=== PATIENT | male | born 1945 | race Caucasian/White ===

== ENCOUNTER 2016-10-15 11:22 | Inpatient (IN) | payer BC, OTHER ==
--- NOTE | ~2016-10-15 | CN ---
Consultation Report [facility] [address] [facility] [place]. [address] NAME: ANA LUISA REED : [birth year] STATUS : ADM IN PAT#: [id number] AGE: 71 ADM/REG DATE : 10/15/16 MR#: [id number] REPORT SERV DATE: 10/21/16 DICTATED BY: SHANTEL THOMPSON DATE: 10/21/16 REPORT STATUS : Draft TRANSCRIBED BY: MODL DATE: 10/21/16 NEUROLOGY CONSULTATION DATE OF CONSULTATION: 10/21/2016 REASON FOR CONSULTATION: Code stroke. SURGEON: Dr. Genaro Medina. MAIL LIST LIBRARIAN: Dr. Fred Rodriguez. HISTORY OF PRESENT ILLNESS: The patient is a 71-year-old male, who was admitted to the hospital on 10/15/2016. He had a chief complaint of chest pain. His chest pain had features of typical and atypical angina. He has had nuclear stress testing for his myocardial workup and the stress test came back normal, however, it was thought he may have had "balanced ischemia". Therefore he underwent cardiac catheterization along with intravascular ultrasound and this revealed that the patient's left main artery had severe stenosis in the midportion. The patient underwent coronary artery bypass grafting x3 on 10/17/2016. Today at approximately 11 a.m., a code stroke was called by Sigifredo Perales because the patient's level of consciousness had changed dramatically. The patient was sitting in the bed, repeating his name over and over again. This is a dramatic change from the patient's mentation yesterday. When talking with the patient's family member, the family member mentioned that the patient had a change in mentation around 7:30 p.m. last night. Stat ABGs were drawn which came back relatively normal except the patient was somewhat hypoxemic. The patient was taken down to CT scan and a hypodensity in the left frontoparietal region was visualized. Since the patient is status post coronary artery bypass grafting and the stroke time of onset was most likely yesterday, the patient was not a tPA candidate. The patient's NIH stroke scale score was calculated to be 9. PAST MEDICAL HISTORY: High-grade left main coronary artery disease; normal stress test with suspected "balanced ischemia"; chronic anemia; diabetes mellitus type 2; dyslipidemia; hypertension; left bundle-branch block; remote history of tobacco abuse; GERD; and Agent Schley exposure in [place]. PAST SURGICAL HISTORY: Status post coronary artery bypass grafting. SOCIAL HISTORY: Remote smoker without alcohol or illicit drug use. FAMILY HISTORY: Unobtainable from the patient at this point. CURRENT MEDICATION: List includes 1. Amiodarone 400 mg p.o. every 12 hours. Consultation Report [place] [id number] [place]. [address] NAME: ANA LUISA REED : [birth year] STATUS : ADM IN [facility]#: [id number] AGE: 71 ADM/REG DATE : 10/15/16 MR#: [id number] REPORT SERV DATE: 10/21/16 DICTATED BY: SHANTEL THOMPSON DATE: 10/21/16 REPORT STATUS : Draft TRANSCRIBED BY: WILL DATE: 10/21/16 2. Norvasc 5 mg p.o. at bedtime. 3. Vitamin C 1000 mg p.o. b.i.d. 4. Aspirin 81 mg daily. 5. Lipitor 40 mg at bedtime. 6. Coreg 12.5 mg b.i.d. 7. Pepcid 20 mg b.i.d. 8. NovoLog insulin sliding scale 8 units a.c. 9. Bactroban 1 g topical b.i.d. 10.Nitroglycerin 1 inch topical q.6 hours. 11.Senokot 2 tablets p.o. b.i.d. 12.Spiriva 1 inhalation daily. 13.Levemir 20 units subcu b.i.d. ALLERGIES: NONE. REVIEW OF SYSTEMS: Unobtainable from the patient at this time. PHYSICAL EXAMINATION: GENERAL: The patient is a 71-year-old male who stands 5 feet 7 inches tall and weighs 220 pounds. He is afebrile. VITAL SIGNS: Heart rate 61, respiratory rate 20, O2 saturations on 3 L nasal cannula 95%, and blood pressure 163/79. NEUROLOGIC: The patient is extremely hard of hearing. He is lethargic. He will arouse to verbal and painful stimuli but quickly drifts back to sleep. He appears to have some aphasia. He is dysarthric. He is oriented to person only, not to place, time, or situation. He will follow a few simple one-step commands. Pupils are 3 mm. PERRLA. EOMs are intact. It is difficult to determine visual field if there are visual field deficits; however, he will blink to visual threat. No noticeable facial droop. No tongue deviation. He can move all extremities x4. He is slightly weaker on the right than the left, grade 4/5 on the right upper extremity and 4/5 in the right lower extremity. DTRs are intact 2+ throughout, downgoing toes. It is difficult to assess for sensory deficits since the patient is drowsy. NECK: No carotid bruits, JVD, or thyromegaly. CHEST: Lung sounds relatively clear. CARDIAC: Regular rate and rhythm. LAB DATA: CBC normal. BMP: BUN is 52, creatinine 1.16. ABGs, pH 7.4, CO2 of 37, PO2 of 75, bicarb 22.1, and PaO2 is 94.2%. CT of the brain, acute to subacute hypodensity in the left frontoparietal region. NIH stroke scale is 9. ASSESSMENT/PLAN: Acute to subacute stroke. At this point, the patient's aspirin will be increased to 325 mg daily. He will continue Crestor 40 mg p.o. at bedtime. Stat carotid duplex study. The patient will undergo an MRI of the brain without gadolinium and an MRA of the head and neck with gadolinium. He will also have an echocardiogram with bubble study. PT/OT and Speech Therapy consultation. He will be n.p.o. until he is seen and cleared by Consultation Report [address] [address] NAME: ANA LUISA REED : [birth year] STATUS : ADM IN [facility]#: [id number] AGE: 71 ADM/REG DATE : 10/15/16 MR#: [id number] REPORT SERV DATE: 10/21/16 DICTATED BY: SHANTEL THOMPSON DATE: 10/21/16 REPORT STATUS : Draft TRANSCRIBED BY: WILL DATE: 10/21/16 Speech Therapy. He will be transferred to ICU since he is lethargic and has decreased LOC; however, he is not a tPA candidate. Further lab work will be drawn. Thank you again for including us in consultation. We will continue to follow with you. YESSY/WILL Shantel Thompson, [facility]- / [id number] CC: MD Duane Bullock M.D. Stephen Martin, M.D.
--- NOTE | ~2016-10-15 | CN ---
Consultation Report [place] [id number] [facility] [place]. [address] NAME: ANA LUISA REED : [birth year] STATUS : ADM IN PAT#: [id number] AGE: 71 ADM/REG DATE : 10/15/16 MR#: [id number] REPORT SERV DATE: 10/17/16 DICTATED BY: GENARO MEDINA DATE: 10/17/16 REPORT STATUS : Draft TRANSCRIBED BY: WILL DATE: 10/17/16 CONSULTATION DATE OF CONSULTATION: 10/15/2016 PERTINENT HISTORY: The patient is a 71-year-old gentleman, admitted to the hospital with acute chest pain syndrome. By Dr. Nithin Rodriguez, the cardiac catheterization was performed, which demonstrated left main coronary stenosis. The patient has been mainly referred for cardiac surgical evaluation. PAST MEDICAL HISTORY: Significant for previous history of known anemia of unknown etiology and a history of hypertension. He has no history of open cardiac or thoracic surgery. SOCIAL HISTORY: Remotely positive for tobacco use. FAMILY HISTORY: Positive for coronary artery disease. REVIEW OF SYSTEMS: Significant for the recent onset of chest pain. No neurologic symptoms. PHYSICAL EXAMINATION: VITAL SIGNS: Show the patient to be afebrile. Blood pressure 140/70, heart rate was 60. GENERAL: He is in no acute distress. Alert and oriented x3. NEUROLOGIC: Intact. NECK: No bruits noted in his neck. No adenopathy in the neck. CHEST: Good breath sounds bilaterally without wheezes, rales, or rhonchi. CARDIAC: Regular rate and rhythm. No murmur noted. ABDOMEN: Soft and nontender without masses. EXTREMITIES: Warm and dry. : Normal. SKIN: Showed no rash. LABORATORY DATA: The cardiac catheterization demonstrated very tight left main coronary stenosis with a trifurcating left main. The obtuse marginal artery looked small. The right coronary artery had minimal disease. The left ventricular function was adequate. IMPRESSION: At this time, left main coronary stenosis with acute coronary syndrome. PLAN: To proceed with coronary revascularization. ANSON/WILL Consultation Report [place] [id number] [facility] [place]. [address] NAME: ANA LUISA REED : [birth year] STATUS : ADM IN PAT#: [id number] AGE: 71 ADM/REG DATE : 10/15/16 MR#: [id number] REPORT SERV DATE: 10/17/16 DICTATED BY: GENARO MEDINA DATE: 10/17/16 REPORT STATUS : Draft TRANSCRIBED BY: WILL DATE: 10/17/16 Genaro Medina M.D. / [id number] CC: Fred Rodriguez MD
--- NOTE | ~2016-10-15 | CN ---
Consultation Report [facility] [address] [place]. [address] NAME: ANA LUISA REED : 47 STATUS : ADM IN PAT#: [id number] AGE: 71 ADM/REG DATE : 10/15/16 MR#: [id number] REPORT SERV DATE: 10/21/16 DICTATED BY: PRATIMA GUIDRY DATE: 10/21/16 REPORT STATUS : Draft TRANSCRIBED BY: MODLara DATE: 10/21/16 CONSULT DATE OF CONSULTATION: HISTORY OF PRESENT ILLNESS: This is a 71-year-old patient that I was asked to follow in the CVICU for mental status and airway management. The patient is status post urgent coronary artery bypass grafting x3 done by Dr. Genaro Medina, on 10/17/2016. The patient was seen by Dr. Bueno on 10/16/2016, because of some dyspnea on exertion. The patient was started on Spiriva and albuterol and has a very remote history of smoking. He stopped smoking in 1992, and has about a 20 to 30 pack year history of smoking. Also has a history of Agent Morrison exposure in [place]. The patient did well postoperatively and was transferred to the floor just a day or two ago and then had a sudden change in mental status on 10/21/2016, a code stroke was called, and a CT scan of the head was done, and showed an area low density, in the left posterior frontal location that was thought to be a subacute stroke. He then had an MRI of the brain done and showed acute focal left frontal infarction, but no bleeding. The patient currently is undergoing further evaluation as per stroke protocol. Concerns about him being maintained on the floor were that he became somnolent at times and might have difficulty managing his airway. ALLERGIES: THE PATIENT HAS NO KNOWN ALLERGIES. HOME MEDICATIONS: Norvasc, aspirin, carvedilol, hydrochlorothiazide, insulin, Cozaar, metformin, Prilosec, and Crestor. PAST MEDICAL HISTORY: 1. Significant for coronary artery disease and recent triple vessel bypass surgery. 2. Type 2 diabetes mellitus. 3. Dyslipidemia. 4. Hypertension. 5. History of left bundle-branch block. SOCIAL HISTORY: Significant for cigarette smoking. Quit in 1992 to 1993. No history of significant alcohol or drug use. FAMILY HISTORY: Significant for coronary artery disease. REVIEW OF SYSTEMS: At this time, the patient is very hard of hearing. His biggest complaint is being short of breath. He denies any chest pain, other than the incisional discomfort and has denied any abdominal pain, nausea, vomiting, dizziness, blurred vision, and the remainder of a 10-point review of systems is unremarkable. PHYSICAL EXAMINATION: Consultation Report [place] [id number] [place]. [address] NAME: ANA LUISA REED : [birth year] STATUS : ADM IN PAT#: [id number] AGE: 71 ADM/REG DATE : 10/15/16 MR#: [id number] REPORT SERV DATE: 10/21/16 DICTATED BY: PRATIMA GUIDRY DATE: 10/21/16 REPORT STATUS : Draft TRANSCRIBED BY: WILL DATE: 10/21/16 VITAL SIGNS: The patient is responsive, and does respond appropriately. His blood pressure is 146/86, respiratory rate initially was in the high 20s and is now down to 19, O2 saturation now on 2 to 3 L is 96%. Heart rate is 63 and in normal sinus rhythm. SKIN: The patient's skin is warm and dry. HEENT: Head is atraumatic and normocephalic. Pupils are sluggish, but reactive. Sclerae anicteric. Conjunctivae are pink. Nasal mucosa is within normal limits. Oral mucosa is moist. Tongue is midline. NECK: Supple without JVD, lymphadenopathy, or thyromegaly. RESPIRATORY: Lungs are notable for bilateral wheezing. An incision with dressing without significant drainage. CARDIAC: Reveals a regular rate and rhythm with no significant murmurs. ABDOMEN: Obese, nondistended, and soft. Bowel sounds are present. RECTAL/GENITAL: Deferred. EXTREMITIES: Without cyanosis, clubbing, or edema. Pulses are palpable and symmetrical. NEUROLOGIC: Cranial nerves 2 through 12 are grossly intact. Motor and sensory are intact. There are no focal findings. LABORATORY AND DIAGNOSTIC DATA: chest x-ray shows pulmonary vascular congestion. ABG done earlier today showed a pH of 7.4, pCO2 of 37, PO2 of 75, bicarbonate of 22, O2 saturation of 94% on 32% FiO2. Electrolytes this morning, sodium 137, potassium 4.3, chloride 102, bicarb 25, BUN 52, creatinine 1.16, glucose 152, calcium 8.2. White cell count 11, hemoglobin 9.7, hematocrit 31, platelet count 158,000. AM cortisol 33.9, and ammonia level 33. LFTs are within normal limits except for slight elevation of ALT this 74 and AST 58, TSH is 1.07, free T4 is 1.06. ASSESSMENT AND PLAN: This is a 71-year-old patient, status post triple-vessel bypass surgery, history of smoking, probable chronic obstructive pulmonary disease, hyperlipidemia, who now presents with encephalopathy on the floor. Further workup showed him to have a subacute stroke and the acute focal left frontal infarction was noted, but no bleed. So, the patient will be observed in the CVICU for airway management and frequent neurologic checks. Since he has subacute stroke. Not a candidate for tPA. With regard to his pulmonary status, he will need diuretics, as well as Brovana, Pulmicort, and DuoNeb for his wheezing. We will need formal evaluation as an outpatient for pulmonary function testing if not already done. For his diabetes, he will be on a sliding insulin scale. We will follow patient with you. Thank you for your consultation. /WILL Pratima Guidry M.D. Consultation Report [address] [address] NAME: ANA LUISA REED : [birth year] STATUS : ADM IN [facility]#: [id number] AGE: 71 ADM/REG DATE : 10/15/16 MR#: [id number] REPORT SERV DATE: 10/21/16 DICTATED BY: PRATIMA GUIDRY DATE: 10/21/16 REPORT STATUS : Draft TRANSCRIBED BY: WILL DATE: 10/21/16 / [id number] CC: Fred Rodriguez MD
--- NOTE | ~2016-10-15 | CN ---
Consultation Report [facility] [address] [place]. [address] NAME: ANA LUISA REED : 47 STATUS : ADM IN PAT#: [id number] AGE: 71 ADM/REG DATE : 10/15/16 MR#: [id number] REPORT SERV DATE: 10/23/16 DICTATED BY: IRMA MCNEILL DATE: 10/23/16 REPORT STATUS : Draft TRANSCRIBED BY: MODL DATE: 10/23/16 CONSULTATION DATE OF CONSULTATION: 10/22/2016 REASON FOR CONSULTATION: Consulted for anemia work up. The patient has a history of chronic anemia. Neurology wants to actually place patient postoperatively from a subacute stroke on Eliquis after a workup eval is done and if okay with senior etl developer and Cardiovascular Surgery. IDENTIFYING DATA: 1. Primary care physician, Duane Rockwell M.D. 2. Neurology, JENNY Honeycutt. 3. Gas [employer]ch Brazier, Fred Rodriguez MD. 4. Cardiovascular Surgery, Genaro Medina M.D. 5. Pulmonology, Remy Bueno M.D. HISTORY OF PRESENT ILLNESS: This is a 71-year-old male, who was admitted to the hospital on 10/15/2016 with a chief complaint of chest pain. He had a stress testing for his myocardial work up and the stress test came back normal; however, it was thought that he had a "balanced ischemia." He underwent cardiac catheterization, intravascular ultrasound, and it revealed that the patient had a left main artery that had severe stenosis. He is actually status post recent CABG x3 after noting high-grade left main coronary artery disease on 10/17/2016. On 10/21/2016, at around 11 in the morning, a code stroke was called because the patient's level of consciousness had dramatically changed. He was sitting in the bed, repeating his name over and over. The mentation was different. The patient was taken down for a stat CT scan that displayed a hypodensity in the left frontoparietal region. He is status post coronary artery bypass grafting surgery for which he is status post subacute CVA of the left frontal lobe with no bleed noted. The patient was not noted a tPA candidate, and his NIH stroke scale was calculated at that time to be 9. The hospitalist group is consulted by Neurology, status post CVA for an anemia work up. The patient is noted to have chronic anemia. Neurology wants to be able to place the patient postoperatively on Eliquis after the workup is evaluated and pending okay with Cardiology and the Cardiovascular Surgery group. The patient's history was obtained through [employer] and [employer] and design studio consultant notes and some medical records including in the chart. The patient is confused and unable to give a history, and actually is very sleepy at present time. When he awakens, he does have repetitive speech. PAST MEDICAL HISTORY: 1. Angina. 2. Hypertension. 3. GERD. Consultation Report [place] [id number] [facility] [place]. [address] NAME: ANA LUISA REED : 47 STATUS : ADM IN [facility]#: [id number] AGE: 71 ADM/REG DATE : 10/15/16 MR#: [id number] REPORT SERV DATE: 10/23/16 DICTATED BY: IRMA MCNEILL DATE: 10/23/16 REPORT STATUS : Draft TRANSCRIBED BY: WILL DATE: 10/23/16 4. Psoriasis. 5. Diabetes type 2. 6. Chronic anemia. 7. Hyperlipidemia. 8. Left bundle branch block. 9. COPD. 10.He is hard of hearing. 11.Status post new subacute CVA with an acute left frontal infarct. No noted bleed post CABG surgery on 10/17/2016. HOME MEDICATIONS: 1. Norvasc 10 mg p.o. every day at bedtime. 2. Aspirin 325 mg p.o. daily. 3. Coreg 3.125 mg tablet p.o. twice a day. 4. Hydrochlorothiazide 25 mg p.o. daily. 5. Lantus 60 units subcutaneous twice a day. 6. Cozaar 100 mg p.o. daily. 7. Glucophage 1000 mg p.o. with breakfast and supper. 8. Prilosec 20 mg p.o. daily. 9. Crestor 20 mg p.o. every day at bedtime. ALLERGIES: NO KNOWN ALLERGIES. SOCIAL HISTORY: The patient lives alone in a single-level home. Remote history of smoking, quit in 1992 to 1993. He has a 20 to 30 pack year history. No illicit drugs or alcohol use. Had exposure to Agent Turner while in [place]. FAMILY HISTORY: Only noted as positive for coronary artery disease. The patient's son is not available to answer family history, and patient is unable at present time. SURGICAL HISTORY: 1. Inner ear surgery x3. 2. CABG x3 on 10/17/2016. REVIEW OF SYSTEMS: Negative other than what is included in HPI. The patient has no nausea and vomiting. No shortness of breath. No agitation. No abdominal pain. No chest pain. No fever. Shows confusion and status post aphasic after CVA. PHYSICAL EXAMINATION: VITAL SIGNS: From today: Blood pressure 118/58, respiratory rate 18, heart rate 60, temperature 97.9, and O2 saturation 99% on 2 L nasal cannula. GENERAL: This is a 71-year-old male, resting in bed, in no acute distress. He is sleepy. Upon awakening, he is confused. He is aphasic. At times, he will have repetitive speech, but he can obey commands. He is cooperative. Consultation Report [address] [place]. [address] NAME: ANA LUISA REED : 47 STATUS : ADM IN [facility]#: [id number] AGE: 71 ADM/REG DATE : 10/15/16 MR#: [id number] REPORT SERV DATE: 10/23/16 DICTATED BY: IRMA MCNEILL DATE: 10/23/16 REPORT STATUS : Draft TRANSCRIBED BY: WILL DATE: 10/23/16 NECK: His neck is supple. His trachea is midline. No JVD noted. No obvious thyromegaly or lymphadenopathy. EENT: His sclerae are nonicteric. Pupils are equal and reactive to light. Nares are patent. Mucous membranes are moist. CHEST: No pain with palpation. He does have a mid sternal dressing that is clean, dry, and intact. LUNGS: Diminished in bases. No increased work of breathing noted. Normal respiratory effort. CARDIOVASCULAR: S1, S2 with no obvious murmurs, rubs, or gallops. On telemetry, he displays a sinus bradycardia with a rate of 59. ABDOMEN: Soft, nontender. Active bowel sounds. No palpable organomegaly. EXTREMITIES: Normal distal pulses. No calf tenderness. No edema. He has SCDs in place. SKIN: Warm, dry. No unusual rashes or lesions. Normal color turgor. PSYCH: The patient is very sleepy, cooperative but flat affect. SURGICAL WOUND SITE: Dressing is clean, dry, and intact. LABORATORY DATA: Sodium 141, potassium 3.9, chloride 103, CO2 of 22.1. BUN 51, creatinine 1.04, GFR 84, glucose 143, calcium 8.2, magnesium 2.8, and phosphorus 2.3. White blood cell 8.5, hemoglobin 9.1, hematocrit 29.0, platelets 138. INR 1.2. On 10/22/2016, a chest x-ray noted some bilateral effusions with bibasilar atelectasis and some pulmonary vascular congestion. It is noted the patient is on Lasix daily. On 10/20/2016, an EKG showed a sinus rhythm with a first-degree heart block. Nonspecific intraventricular block and an abnormal EKG. ASSESSMENT AND PLAN: 1. The patient is noted to have chronic anemia. Neurology requested the hospitalist do a work up for this anemia for the patient to be able to be placed on Eliquis if okay with cardiovascular surgeon and Cardiology. We will add labs to his a.m. labs, a BMP, magnesium, and CBC. We will add a serum iron, TIBC, serum ferritin, a peripheral smear, and stool for occult blood. 2. Hypertension. Aware. The patient has a history of coronary artery disease now with a left bundle branch block. He is status post a cerebrovascular accident after having coronary artery bypass graft x3. Management as per Cardiology for hypertension and coronary artery disease, and the patient is followed by Neurology, status post stroke. The patient will be continued on Coreg, Ecotrin, Norvasc, his p.r.n. Catapres, and nitroglycerin ointment. 3. Chronic obstructive pulmonary disease. Aware. Management per Pulmonology, where they will continue Brovana, Pulmicort, Spiriva, and O2 to titrate to keep the patient's saturations 92% or greater. 4. Gastroesophageal reflux disease. Aware. The patient's Pepcid will be continued. 5. Hyperlipidemia. Aware. Lipitor daily will be continued. 6. Diabetes type 2. Aware. The patient is status post coronary artery bypass graft x3. His Levemir will be continued and also he was placed on a sliding scale insulin, level 3 with coverage before meals and at bedtime. Consultation Report [place] [id number] [place]. [address] NAME: ANA LUISA REED : 47 STATUS : ADM IN PAT#: [id number] AGE: 71 ADM/REG DATE : 10/15/16 MR#: [id number] REPORT SERV DATE: 10/23/16 DICTATED BY: IRMA MCNEILL DATE: 10/23/16 REPORT STATUS : Draft TRANSCRIBED BY: WILL DATE: 10/23/16 The hospitalist group would love to thank you for this consultation. Please let us know if we can be of further assistance. The a.m. team will evaluate a.m. labs and make further decision for anemia work up. MARTINA Irma Mcneill NP / [id number] CC: MD Duane Bullock M.D.
--- NOTE | ~2016-10-15 | DS ---
Discharge Summary [facility] [address] [facility] [place] [address] NAME: ANA LUISA REED : 47 STATUS : DIS IN PAT#: [id number] AGE: 71 ADM/REG DATE : 10/15/16 MR#: [id number] REPORT SERV DATE: 11/08/16 DICTATED BY: GENARO MASTERS DATE: 11/07/16 REPORT STATUS : Draft TRANSCRIBED BY: WILL DATE: 11/07/16 Data Collection from hospitalization DISCHARGE DIAGNOSES: 1. Left main coronary artery stenosis with unstable angina, status post coronary artery bypass grafting. 2. Hypertension. 3. Type 2 diabetes mellitus. 4. Chronic anemia. 5. Dyslipidemia. 6. History of left bundle-branch block. 7. Former smoker. 8. Gastroesophageal reflux disease. 9. Agent [place] exposure in [place]. CONSULTANTS: 1. Fred Rodriguez MD. 2. Remy Bueno M.D. 3. Shantel Johnson [facility]. 4. Irma Ureña NP. 5. Fredrick Bianchi M.D. 6. Makenzie Ly. PROCEDURES: 1. Cardiac catheterization, 10/15/2016. 2. Urgent coronary artery bypass grafting x3 with endoscopic vein harvest utilizing the left internal mammary artery to the left anterior descending artery, reverse saphenous vein graft from the aorta to the diagonal #1 from the aorta to the ramus intermedius, also transesophageal echocardiography, 10/17/2016. 3. Carotid blood flow study, 10/21/2016. 4. CT scan of the brain without contrast, 10/21/2016. 5. MRI of the brain without contrast, 10/21/2016. PATHOLOGY: Review of the peripheral smear demonstrates a moderate microcytic and hypochromic anemia with Rouleaux formation. There was a normal white count with cells of normal mature morphology and differential and without circulating plasma cells. Platelets are minimally decreased and are of normal morphology. This likely represents iron deficiency anemia. Rouleaux formation is present which although nonspecific may be seen with protein abnormalities such as plasma cell neoplasm although less likely. DISCHARGE MEDICATIONS: Norvasc 5 mg at bedtime, Eliquis 5 mg twice a day, aspirin 325 mg daily, Lipitor 80 mg at bedtime, Coreg 12.5 mg twice a day, Colace 100 mg at bedtime, Lantus 60 units subcutaneously twice a day, Prinivil 5 mg daily - hold for systolic blood pressure less than 115, Protonix 40 mg before breakfast and supper, Glucophage 1000 mg with breakfast and supper. CONDITION AT DISCHARGE: Stable. Discharge Summary [place] [place] [address] [place]. [address] NAME: ANA LUISA REED : 47 STATUS : DIS IN PAT#: [id number] AGE: 71 ADM/REG DATE : 10/15/16 MR#: [id number] REPORT SERV DATE: 11/08/16 DICTATED BY: GENARO MASTERS DATE: 11/07/16 REPORT STATUS : Draft TRANSCRIBED BY: MODLara DATE: 11/07/16 DISPOSITION: The patient was discharged to [facility] on an 1800 calorie diabetic diet with activities as instructed. HOSPITAL COURSE: This is a 71-year-old man who had had no previous cardiac history. He had been referred to the Cardiology Clinic for evaluation on 11/03/2016. He had developed chest pain with both typical and atypical features for angina. He had been referred for stress testing as part of a noninvasive workup for myocardial ischemia. The stress test was somewhat ambiguous. He had 10/10 chest pain with exertion as well as ECG changes that were suggestive of myocardial ischemia. However, his myocardial perfusion imaging study was normal showing no evidence of myocardial perfusion or infarction with an ejection fraction of approximately 55%. It was felt that he would need to undergo coronary angiography. He was admitted to the hospital at this time for further evaluation and treatment. Upon admission, he was seen by Dr. Fred Rodriguez. The patient was taken to the cardiac cork slabs sawyer where he underwent cardiac catheterization by Dr. Rodriguez. The patient was in fact found to have significant left main coronary heart disease. This was not entirely clear based on the angiography alone, and therefore, intravascular ultrasound imaging of the patient's left main coronary artery was performed. This demonstrated severe stenosis of the mid portion of the left main coronary artery with minimal luminal area of 3.5 sq mm or less. Due to his relatively unstable symptoms, it was felt that he may need to undergo coronary artery bypass grafting. The patient does have a history of chronic anemia. He denies any history of melena or recent GI bleeding. The patient's symptoms were somewhat concerning for unstable angina. The following day, the patient was in a sinus rhythm in the 80s with left bundle-branch block. Plans were being made to proceed with coronary artery bypass grafting. Metformin had been held. Sliding scale insulin level 1 was being provided. He was seen by Makenzie Ly regarding diabetes mellitus. The patient says that he has had diabetes mellitus for five or six years. He checks his blood glucose levels in the morning and evening. He denied any chest pain, shortness of breath, or any symptoms at this time. Hemoglobin A1c was going to be checked. In 09/2014, it was 8.4. Level 2 sliding scale insulin was continued. Lantus was going to be given twice a day. He was seen by Dr. Remy Bueno for his opinion regarding evaluation and management of the patient's COPD. The patient states that he has chronic shortness of breath that is well localized to the chest and is nonradiating with no significant alleviating or exacerbating factors. He does experience dyspnea on exertion at approximately 100 feet and has difficulty walking up a flight of stairs. He has been prescribed inhalers by the [place] but had never taken them because he does not like to be on medications that could potentially be addictive. The patient had noticed shortness of breath at baseline. He is not on oxygen. He was educated on the importance of medication compliance. There was no evidence of active acute exacerbation, COPD, or any active pulmonary disease requiring delay of surgery. At this point, to better risk stratify him, Dr. Bueno recommended spirometry and starting Spiriva and albuterol as needed. On 10/17/2016, the patient was taken to the operating room where he underwent the above-mentioned procedure. He tolerated this well. There were no complications. On postop day #1, he was up sitting in a chair. He was not eating much. He had diminished urine output. We encouraged him to mobilize. A dose of Lasix was given. Mediastinal drain was going to be discontinued. Blood pressure medications were adjusted. On 10/19/2016, he Discharge Summary [address] [place]. [address] NAME: ANA LUISA REED : 47 STATUS : DIS IN PAT#: [id number] AGE: 71 ADM/REG DATE : 10/15/16 MR#: [id number] REPORT SERV DATE: 11/08/16 DICTATED BY: GENARO MASTERS DATE: 11/07/16 REPORT STATUS : Draft TRANSCRIBED BY: MODLara DATE: 11/07/16 had coarse breath sounds bilaterally. His pleural chest tube was removed. He was in a sinus rhythm. We were watching his creatinine. Creatinine level was 1.27. He developed atrial fibrillation, and IV amiodarone was added. On 10/20/2016, he was currently in a normal sinus rhythm. He had no new complaints. He did have some shortness of breath that morning. He was in a normal sinus rhythm at 60 beats per minute. Chest x-ray showed mild to moderate pulmonary edema. The following day, he had some confusion. O2 saturation was 99% on 3 L. His wound looked okay. He had an altered mental status and was disoriented. He was seen in Neurology home full by Shantel Johnson. A Code Stroke was called because the patient's level of consciousness changed dramatically. He was sitting in bed repeating his name over and over again. This was a dramatic change from his mentation the day previously. His family member mention that he had a change in his mentation around 07:30 p.m. the previous evening. ABGs were drawn which came back relatively normal except that the patient was somewhat hypoxemic. A CT scan of the brain without contrast showed a hypodensity in the left frontoparietal region. The patient was not a candidate for tPA at this time. He was felt to have had an acute/subacute stroke. Aspirin was increased. Crestor was continued. A carotid duplex study was requested as well as an MRI of the brain without gadolinium and an MRA of the head and neck with gadolinium. Echocardiogram with bubble study was requested. He would be held n.p.o. at this time. He was transferred to the ICU. A carotid blood flow study was performed. He had carotid category 2, range of 50-60% luminal stenosis atheroma in the internal carotid above the bifurcation. This had smooth appearance and the core appeared soft suggesting [id number] vulnerability. Left vertebral antegrade subclavian velocity 187 cm. Right carotid normal. Right vertebral antegrade subclavian velocity 86 cm. MRI of the brain without contrast was performed that showed acute focal left frontal infarction-no bleed. Echocardiogram with bubble study was performed. He remained in a normal sinus rhythm at this time. He was transferred back to the ICU. No anticoagulation was given secondary to acute stroke and anemia of uncertain etiology. Aspirin, amiodarone, Coreg, and atorvastatin were continued. Physical and occupational therapy were held. On 10/22/2016, his level of consciousness had improved, but he remained disoriented to place and time. Echocardiogram showed normal left ventricular ejection fraction of 55% and normal valve. He was in a normal sinus rhythm. He did have a bowel movement. His wounds looked okay. He had slight aphasia, but no other new neurologic deficits. He was seen by Irma Ureña for an anemia workup. The patient has a history of chronic anemia. Neurology wanted to actually place the patient postoperatively from a subacute stroke on Eliquis after a workup evaluation was done, and this was okay with the solid waste landfill technician and Cardiovascular Surgery. BMP, magnesium, and CBC were going to be checked as well as a serum iron, TIBC, serum ferritin, peripheral smear, and stool for occult blood. The patient was continued on Coreg, Ecotrin, Norvasc, Catapres, and nitroglycerin ointment. Pepcid was continued. Lipitor was continued. We were going to continue the Levemir, and he was placed on level 3 sliding scale insulin coverage before meals and at bedtime. Continue Brovana, Pulmicort, Spiriva, and O2 to titrate to keep the patient's saturation 92% or greater. On 10/23/2016, Hemovac looked okay. His neurologic status was improving. He had a mild cough and aphasia. He had no shortness of breath or chest pain. He remained in a normal sinus rhythm. Lisinopril was added. Speech/Language Pathology performed a bedside swallow study. There were no overt signs or symptoms of aspiration. Aspiration precautions remained in place. The patient said he felt extremely hot. The patient was seen in consultation by Dr. Fredrick Bianchi regarding heme-positive anemia. He has had green stool. His hematocrit was stable at 30. He said that he had an EGD and colonoscopy performed [address] Discharge [address] [address] NAME: ANA LUISA REED : 47 STATUS : DIS IN PAT#: [id number] AGE: 71 ADM/REG DATE : 10/15/16 MR#: [id number] REPORT SERV DATE: 11/08/16 DICTATED BY: GENARO MASTERS DATE: 11/07/16 REPORT STATUS : Draft TRANSCRIBED BY: WILL DATE: 11/07/16 years previously which were basically negative except for two small polyps that were removed. This was performed by Dr. Salgado. He had no abdominal pain. The stool appeared normal. He does take Prilosec at home daily. He was felt to be at high risk for endoscopic procedures at that point due to his recent CVA. In addition, the patient did not want endoscopy done at this point. Protonix was going to be continued twice a day. TSH was normal. It was felt reasonable to start Eliquis and observe for active bleeding. It was suggested that he follow up as an outpatient with his primary green coffee blender, Dr. Kings Salgado for EGD and colonoscopy at some point. On 10/24/2016, his stool was dark that morning. Proton pump inhibitor continued. He underwent diabetes education. He had no change in his neurologic status. He had no surgical issues. Eliquis had been started. The next day, he said he was feeling better. He had no shortness of breath. We encouraged him to use pulmonary toilet. Over the next couple of days, he had no chest pain. He did have some basilar rales and decreased breath sounds. Discharge planning was performed. IV Lasix was given. His shortness of breath decreased. His speech was more clear. He was alert and oriented. He had no surgical issues. Chest x-ray showed improving congestive failure changes and small right pleural effusion. He remained in a normal sinus rhythm. He still had slight expressive aphasia but it was much improved. On 10/28/2016, he continued to do well. He had no new complaints. Dysarthria continued to improve. He did have a bowel movement. He was felt to have recovered well from his small stroke. Aspirin and atorvastatin were continued. Eliquis was continued as well. He did have a brief episode of atrial fibrillation. H and H remained stable. Discharge instructions were given. Due to his improved and stable condition, he was discharged to [facility] with the above-stated instructions. Information collected by: Paige King I submit the above information as my discharge summary. BRIANNA/WILL Genaro Masters M.D. / [id number] CC: MD Duane Bullock M.D. [facility] Bianchi M.D.
--- NOTE | ~2016-10-15 | CN ---
Consultation Report [facility] [address] [place]. [address] NAME: ANA LUISA REED : 47 STATUS : ADM IN PAT#: [id number] AGE: 71 ADM/REG DATE : 10/15/16 MR#: [id number] REPORT SERV DATE: 10/24/16 DICTATED BY: FREDRICK BIANCHI DATE: 10/24/16 REPORT STATUS : Draft TRANSCRIBED BY: MODL DATE: 10/24/16 GI CONSULTATION. DATE OF CONSULTATION: 10/23/2016 REASON FOR CONSULTATION: Regarding heme-positive anemia. HISTORY OF PRESENT ILLNESS: This is a 71-year-old man, patient of Dr. Kings Salgado, who was admitted on 10/15/2016. His hospital course includes coronary artery bypass grafting and acute left frontal CVA. The CVA occurred a few days after the CABG. The patient had swallow study done recently, which did not show aspiration. He has paroxysmal atrial fibrillation, and Eliquis has been suggested, however, he is heme-positive. No gross bleeding. No melena or hematochezia. No abdominal pain. Stools normal. No GERD or dysphagia. He does take Prilosec daily at home. He was transfused around the time of his surgery, but no transfusions since. He has had green stool. His hematocrit has been stable at 30. He states he had EGD colonoscopy done two years ago, which were basically negative except for two small polyps removed. This was done by Dr. Salgado per patient. MEDICAL HISTORY: Remarkable for CAD, status post CABG as above. Acute left frontal CVA as above. Paroxysmal atrial fibrillation, diabetes, hypertension, GERD, psoriasis, chronic anemia, hyperlipidemia, left bundle-branch block, COPD. ALLERGIES: NONE. MEDICATIONS: In the hospital include vitamins C, Spiriva, Senokot, Pulmicort, Proventil, Protonix 40 mg twice daily, Prinivil or zinc, insulin, Lipitor, IV thiamine, iron, aspirin, Coreg, Colace, Brovana, Bactroban. FAMILY HISTORY: Negative for GI malignancy. SOCIAL HISTORY: Does not use alcohol or tobacco significantly by report. REVIEW OF SYSTEMS: A complete review of systems was obtained and negative except that noted in the history of present illness. PHYSICAL EXAMINATION: VITAL SIGNS: He is currently afebrile. Temperature 97.0, pulse 59, respirations 16, blood pressure 118/58. HEENT: Sclerae anicteric. Pharynx is pink without exudate. NECK: Supple without lymphadenopathy. LUNGS: Clear to auscultation bilaterally. HEART: Regular rate and rhythm. S1, S2 heard without rubs or gallops. ABDOMEN: Normal bowel sounds. Belly is soft, nontender, nondistended without Consultation Report [address] [place]. [address] NAME: ANA LUISA REED : 47 STATUS : ADM IN PAT#: [id number] AGE: 71 ADM/REG DATE : 10/15/16 MR#: [id number] REPORT SERV DATE: 10/24/16 DICTATED BY: FREDRICK BIANCHI DATE: 10/24/16 REPORT STATUS : Draft TRANSCRIBED BY: WILL DATE: 10/24/16 hepatosplenomegaly. EXTREMITIES: No pedal edema or rash. NEUROLOGIC: Alert and oriented. There is no obvious focal deficit. RECTAL: Exam with nurse medical laboratory manager shows green stool. There are internal hemorrhoids, but no masses palpated. No blood. LABORATORY DATA: White blood cell count 8.4, hematocrit 30.2 and stable, MCV 72.6, platelets 140, BUN is 33, creatinine 0.89, bilirubin 0.5, alkaline phosphatase 183, ALT 74, AST 58, iron 20, TIBC 328, ferritin 119, this is after blood transfusion. TSH is normal. IMPRESSION: 1. Heme-positive iron deficiency anemia without gross bleeding. On acid suppression at home prior to admission. 2. Anemia, chronic. 3. Coronary artery disease, status post recent CABG. 4. Paroxysmal atrial fibrillation. 5. Acute left frontal cerebrovascular accident with negative swallow study. RECOMMENDATIONS: 1. Continue Protonix twice daily. 2. High-risk for endoscopic procedures at this point due to recent CVA. In addition, patient does not want endoscopy done at this point. 3. Reasonable to start Eliquis and observe for any active bleeding. 4. Suggest outpatient followup with his primary medical superintendent, Dr. Kings Salgado for EGD and colonoscopy at some point. 5. If there is any active bleeding in the meantime, please call us back. CC/WILL Fredrick Bianchi M.D. / [id number] CC: MD Duane Bullock M.D. Vijaykurmar Patel, M.D.
--- NOTE | ~2016-10-15 | HP ---
History And Physical [address] [place]. [address] NAME: ANA LUISA REED : 47 STATUS : ADM IN [facility]#: [id number] AGE: 71 ADM/REG DATE : 10/15/16 MR#: [id number] REPORT SERV DATE: 10/16/16 DICTATED BY: CINTHYA RODRIGUEZ DATE: 10/15/16 REPORT STATUS : Draft TRANSCRIBED BY: MODL DATE: 10/15/16 DATE OF ADMISSION: 10/15/2016 CARDIOLOGY ADMISSION HISTORY AND PHYSICAL IDENTIFYING DATA: The patient is a 71-year-old man with no previous cardiac history. CHIEF COMPLAINT: The patient is admitted following coronary angiography when he was discovered to have high-grade left main coronary heart disease. HISTORY OF PRESENT ILLNESS: Mr. Reed is a pleasant 71-year-old man, who was referred to Cardiology Clinic for evaluation on 10/06/2016. The patient had chest pain with both typical and atypical features for angina. He was referred for stress testing as part of a noninvasive workup for myocardial ischemia. The patient's stress test was somewhat ambiguous: The patient had 10/10 chest pain with exertion, as well as ECG changes which were suggestive of myocardial ischemia. However, his myocardial perfusion imaging study was normal showing no evidence of myocardial perfusion or infarction with an ejection fraction of approximately 55%. Due to the patient's multiple cardiovascular risk factors and his typical symptoms, he was referred for coronary angiography due to the concern of "balance ischemia." On coronary angiography, the patient was in fact found to have significant left main coronary heart disease. This was not entirely clear based on angiography alone, and therefore, intravascular ultrasound imaging of the patient's left main coronary artery was performed. This demonstrated a severe stenosis of the midportion of the left main coronary artery with a minimal luminal area of 3.5 mm sq or less. Due to the patient's relatively unstable symptoms, it was felt that he should be admitted for further workup in preparation for urgent coronary artery bypass grafting surgery. The patient does have a chronic anemia. Prior to admission today, his most recent available hematocrit was from the year 2014. This was found to be approximately 12 and 36. The patient denies any history of melena or recent GI bleeding. He is unaware of a previous history of anemia, however. PAST MEDICAL HISTORY: 1. Type 2 diabetes. 2. Dyslipidemia. 3. Hypertension. 4. History of left bundle-branch block. PAST SURGICAL HISTORY: Noncontributory. SOCIAL HISTORY: The patient has a distant history of cigarette smoking but quit in the year 1993. He has no significant history of alcohol or drug use. FAMILY HISTORY: Noncontributory. History And Physical [address] [place]. [address] NAME: ANA LUISA REED : [birth year] STATUS : ADM IN [facility]#: [id number] AGE: 71 ADM/REG DATE : 10/15/16 MR#: [id number] REPORT SERV DATE: 10/16/16 DICTATED BY: CINTHYA RODRIGUEZ DATE: 10/15/16 REPORT STATUS : Draft TRANSCRIBED BY: WILL DATE: 10/15/16 ALLERGIES: THE PATIENT HAS NO KNOWN MEDICATION ALLERGIES. HOME MEDICATIONS: The patient's home medications include 1. Amlodipine 10 mg p.o. daily. 2. Aspirin 81 mg p.o. daily. 3. Carvedilol 3.125 mg p.o. twice daily. 4. Hydrochlorothiazide 25 mg daily. 5. Insulin glargine 60 units subcutaneously twice daily. 6. Losartan 100 mg daily. 7. Metformin 1 g p.o. q.a.m. and q.p.m. 8. Omeprazole 20 mg p.o. daily. 9. Crestor 20 mg p.o. at bedtime. REVIEW OF SYSTEMS: A complete 12-system review was performed. This was noncontributory except for the pertinent positives and negatives noted in the history of present illness above. PHYSICAL EXAMINATION: VITAL SIGNS: Temperature is 98.0 Degrees Fahrenheit, blood pressure is 154/72 mmHg, heart rate is 80 beats per minute and regular, respirations are 13, and oxygen saturation is 95% on room air. GENERAL: The patient is an obese white man, who is in no acute distress. EYES: PERRL, EOMI, clear conjunctiva. HEAD/MNT: NCAT with moist mucous membranes and grossly normal hard and soft palate. NECK: Supple with no obvious thyromegaly or lymphadenopathy CARDIOVASCULAR: There is a regular rhythm with a normal S1 and a paradoxically split second heart sound. No significant murmurs or rubs are noted. PMI - normal location and character. Normal jugular venous pressure. No carotid bruits noted bilaterally. PULMONARY: Clear to auscultation bilaterally, no wheezing, rales or rhonchi noted. No dullness to percussion. Non-labored. ABDOMINAL: Soft, non-tender, non-distended with no hepatosplenomegaly noted. EXTREMITIES: No clubbing, cyanosis or edema. MUSCULOSKELETAL: Grossly normal strength and range of motion in all extremities INTEGUMENTARY: Skin appears intact with no bruises, wounds or active lesions noted NEURO/PSYC: Alert and oriented x3, with no dysarthria, facial droop or lateralizing weakness noted. IMAGIN-lead EKG: The patient's 12-lead EKG shows normal sinus rhythm with a left bundle-branch block pattern. LABORATORY DATA: CBC shows white blood cell count of 6.2, hemoglobin of 9.3, hematocrit of 30, and platelets of 141. Electrolyte profile shows sodium of 140, potassium of 4.0, chloride is 103, CO2 is 28, BUN of 15, creatinine of 0.93, glucose of 123, and calcium of 9.1. History And Physical [address] [address] NAME: ANA LUISA REED : [birth year] STATUS : ADM IN [facility]#: [id number] AGE: 71 ADM/REG DATE : 10/15/16 MR#: [id number] REPORT SERV DATE: 10/16/16 DICTATED BY: CINTHYA RODRIGUEZ DATE: 10/15/16 REPORT STATUS : Draft TRANSCRIBED BY: WILL DATE: 10/15/16 Coronary angiography: Please see official report for full details. In summary, the patient has an isolated stenosis of the mid left main coronary artery with a minimal luminal area of 3.5 sq mm. This would be highly significant for a diabetic patient. The patient has a "double ramus" system with a widely patent left anterior descending: A branching ramus intermedius, and a widely patent left circumflex. All of these vessels appear to be adequate targets for coronary artery bypass grafting surgery. The patient has normal left ventricular systolic function with an ejection fraction estimated at 55%. ASSESSMENT AND PLAN: 1. Symptomatic left main coronary artery stenosis: The patient's symptoms are somewhat concerning for unstable angina. He has had progression of his chest pain prompting a recent Cardiology referral. Given the presence of left main coronary heart disease as well as the patient's multiple cardiovascular risk factors, I have recommended admission for urgent coronary angiography. Dr. Medina of the Thoracic Surgery Service has been consulted. 2. Anemia: A repeat CBC will be obtained tomorrow morning. Stool guaiac samples will be obtained x3. I will try to obtain the patient's most recent CBC from his primary care provider to determine the chronicity of his anemia. Again, the patient does not report any symptoms of melena or active bleeding. We will most likely proceed with further workup following completion of the patient's coronary artery bypass grafting surgery assuming there is no evidence of acute blood loss. [facility]/MODL Cinthya Rodriguez MD / [id number] CC: MD Duane Bullock M.D.
--- NOTE | ~2016-10-15 | CN ---
Consultation Report [facility] [address]. [address] NAME: KRIS REED : 47 STATUS : ADM IN [facility]#: [id number] AGE: 71 ADM/REG DATE : 10/15/16 MR#: [id number] REPORT SERV DATE: 10/16/16 DICTATED BY: REMY MOON DATE: 10/16/16 REPORT STATUS : Draft TRANSCRIBED BY: MODL DATE: 10/16/16 CONSULTATION REPORT DATE OF CONSULTATION: Dear Dr. Rodriguez: Thank you for requesting my opinion regarding evaluation and management of Mr. Kris Reed's COPD. Mr. Reed is a 71-year-old gentleman with a significant past medical history of type 2 diabetes, hypertension, hyperlipidemia, left bundle-branch block , and COPD diagnosed five years ago, who presented to [facility] after a positive stress test. The patient underwent cardiac catheterization and was found to have left main disease and will require coronary artery bypass graft surgery. The patient states that he has chronic shortness of breath, well localized to the chest, nonradiating with no significant alleviating or exacerbating factors. He experiences dyspnea on exertion at approximately 100 feet, has difficulty walking up a flight of stairs, and [facility], but has never taken them because he does not like to be on medications that could be potentially addictive. REVIEW OF SYSTEMS: A detailed 14-point review of systems was completed. Pertinent positives and negatives are listed above. PAST MEDICAL HISTORY: 1. Type 2 diabetes. 2. Dyslipidemia. 3. Hypertension. 4. Left bundle-branch block. PAST SURGICAL HISTORY: Noncontributory. SOCIAL HISTORY: The patient smoked when he was very young, to his mid 30s and for a total of 20 to 30 pack years. He denies any significant alcohol or illicit drug abuse. He states that he had Agent Person exposure in [place]. FAMILY HISTORY: Noncontributory. ALLERGIES: NO KNOWN DRUG ALLERGIES. HOME MEDICATIONS: Reviewed and located in the paper chart. PHYSICAL EXAMINATION: VITAL SIGNS: Afebrile, T-current 97.0, pulse 83, respiratory rate of 20, on room air 95%, and blood pressure 148/65. Consultation Report [facility] [address] [facility] [place]. [address] NAME: KRIS REED : [birth year] STATUS : ADM IN PAT#: [id number] AGE: 71 ADM/REG DATE : 10/15/16 MR#: [id number] REPORT SERV DATE: 10/16/16 DICTATED BY: REMY MOON DATE: 10/16/16 REPORT STATUS : Draft TRANSCRIBED BY: WILL DATE: 10/16/16 GENERAL: No acute distress. Able to communicate in full paragraphs at a time. Hard of hearing. HEENT: Normocephalic, atraumatic. Pupils are equal, round, and reactive to light and accommodation. Posterior oropharynx is clear. NECK: No JVD. No LAD. Trachea midline. CARDIOVASCULAR: Regular rate and rhythm. S1, S2 present. LUNGS: Diminished breath sounds bilaterally. No wheezes. ABDOMEN: Nontender. Nondistended. Soft. Positive bowel sounds. EXTREMITIES: No clubbing, cyanosis, or edema. SKIN: No new rashes, lesions, or ulcers. PSYCHIATRIC: Alert and oriented x3. Appropriate mood and affect. Appropriate insight and judgment. NEUROLOGIC: 5/5 strength in upper and lower extremities. Cranial nerves 2 through 12 intact. Gait, not tested. DTRs, not performed. LABORATORY DATA: White count of 5.1, hemoglobin of 8.9, hematocrit 29.6, platelet count of 138. Chemistries demonstrated creatinine of 0.98. Chest x-ray on 10/16/2016, was personally reviewed by me and demonstrates no evidence of acute cardiopulmonary disease. ASSESSMENT AND PLAN: Mr. Kris Reed is a 71-year-old gentleman with a significant past medical history of significant left main disease, hypertension, hyperlipidemia, diabetes, who presented to [facility] for a positive stress test. He underwent coronary angiography, which demonstrated significant left main disease requiring coronary artery bypass graft surgery. I have been asked to evaluate him for pulmonary optimization and a preop pulmonary optimization. The patient has some significant dyspnea on exertion; however, he has noticed shortness of breath at baseline and not on oxygen. He has been prescribed inhalers in the past, but has never taken them for fear of taking medications that could be potentially addictive. I educated him on importance of medication compliance. There is no evidence of active acute exacerbation, no COPD, or any active pulmonary disease requiring delay of surgery. At this point, to better risk stratify him, I recommend spirometry. I also recommend starting Spiriva and albuterol p.r.n. RECOMMENDATION: A summary of my recommendations are as follows: 1. Spirometry. 2. Spiriva and albuterol p.r.n. 3. No evidence of active pulmonary disease requiring delay of coronary artery bypass graft surgery. Thank you for allowing me to participate in Mr. Reed care. Consultation Report [address] [place]. [address] NAME: KRIS REED : 47 STATUS : ADM IN PAT#: [id number] AGE: 71 ADM/REG DATE : 10/15/16 MR#: [id number] REPORT SERV DATE: 10/16/16 DICTATED BY: REMY MOON DATE: 10/16/16 REPORT STATUS : Draft TRANSCRIBED BY: WILL DATE: 10/16/16 Sincerely, CARMEN/WILL Remy Moon M.D. / [id number] CC: MD Duane Bullock M.D.
--- NOTE | ~2016-10-15 | OP ---
Record Of Operation [facility] [address] [place]. [address] NAME: ANA LUISA REED : 47 STATUS : ADM IN PAT#: [id number] AGE: 71 ADM/REG DATE : 10/15/16 MR#: [id number] REPORT SERV DATE: 10/20/16 DICTATED BY: GENARO MEDINA DATE: 10/17/16 REPORT STATUS : Draft TRANSCRIBED BY: MODL DATE: 10/17/16 DATE OF PROCEDURE: 10/17/2016 PREOPERATIVE DIAGNOSIS: Left main coronary stenosis with unstable angina. POSTOPERATIVE DIAGNOSIS: Left main coronary stenosis with unstable angina. OPERATIVE PROCEDURE: Urgent coronary bypass grafting x3 with endoscopic vein harvest utilizing the left internal mammary artery to the left anterior descending artery, reverse saphenous vein graft from aorta to the diagonal #1 from the aorta to the ramus intermedius. Also transesophageal echocardiography. OPERATIVE SURGEON: Genaro Medina M.D. ANESTHESIA: General anesthesia, AA. CHEST TUBES PLACED: Chest tubes placed were 2. Pacing wires 2 in the right ventricle and 2 in the right atrium. PERTINENT HISTORY: The patient is a 71-year-old gentleman, referred by Dr. Nithin Rodriguez with left main coronary stenosis by cardiac catheterization. The patient admitted with severe chest pain. OPERATIVE FINDINGS: The patient had right coronary artery which had no significant disease. The left ventricular function is slightly diminished with elevated PA pressures. The obtuse marginal artery was too small for bypass. OPERATIVE PROCEDURE: The patient was taken to the operating room, placed in supine position. Anesthesia was obtained. The patient was prepped and draped in usual sterile fashion. Transesophageal echocardiogram was performed demonstrating no significant valvular heart disease. Greater saphenous vein harvested to the lower extremities with invasive technique and those wounds closed in a two-layer fashion. Midline sternotomy incision was made. Sternum was divided. Left internal mammary artery was dissected and found with good flow. Heparin was then infused and the patient started on cardiopulmonary bypass. Cross-clamp was applied. Cardioplegia was infused in antegrade and retrograde fashion over a period of 15 minutes. The obtuse marginal artery was examined and found to be too small for bypass. The ramus intermedius with central myocardial was bypassed in reversed saphenous vein graft in end-to-side fashion. The first diagonal artery was central myocardial. This was bypassed with reversed saphenous vein graft in end-to-side fashion. Then the left internal artery mammary was used to bypass the LAD artery in end-to-side fashion. A cross clamp was then placed. The two proximal anastomoses on the ascending aorta. Cross clamp was removed. Good hemostasis was noted. Two pacing wires on the right ventricle, two on the right atrium, and two chest tubes were placed. The patient warmed to 36 centigrade and underwent AV sequential pacing with mild inotropic support. He was weaned from cardiopulmonary bypass. Protamine sulfate was infused. Blood pressure . Hemostasis was adequate. Sternum was closed with four sternal cables. Soft tissue was closed in Record Of Operation [address] [place]. [address] NAME: ANA LUISA REED : 47 STATUS : ADM IN [facility]#: [id number] AGE: 71 ADM/REG DATE : 10/15/16 MR#: [id number] REPORT SERV DATE: 10/20/16 DICTATED BY: GENARO MEDINA DATE: 10/17/16 REPORT STATUS : Draft TRANSCRIBED BY: WILL DATE: 10/17/16 manner stated above. The patient tolerated the procedure well and was taken back to the ICU in stable condition. ANSON/WILL Genaro Medina M.D. / [id number] CC: Fred Rodriguez MD
[~2016-10-15 11:22] MED LIST: COREG3 PO; COZAAR100 MG PO; CRESTOR40 MG PO; GLUCOPHAGE1000 MG PO; HALF81 PO; HYDROCHLOROT25 MG PO; LANTUS SC; NORV10 PO; PRILO PO
[2016-10-15 12:17] LABS: BASOPHILS 0.6 %; BASOPHILS ABSOLUTE 0.04 10/3/uL (0.0-0.16); EOSINOPHILS 1.4 %; EOSINOPHILS ABSOLUTE 0.09 10/3/uL (0.0-0.53); HEMOGLOBIN 9.3 g/dL (13.6-17.8); IMMATURE GRANULOCYTES 0.2 %; IMMATURE GRANULOCYTES ABSOLUTE 0.01 10/3/uL (0.0-0.11); LYMPHOCYTES 26.6 %; LYMPHOCYTES ABSOLUTE 1.66 10/3/uL (0.67-4.30); MEAN CORPUS HGB CONC 30.6 g/dL (32.0-36.0); MEAN PLATELET VOLUME 9.9 fL (9.2-13.0); MONOCYTES 5.3 %; MONOCYTES ABSOLUTE 0.33 10/3/uL (0.21-1.20); NEUTROPHILS 65.9 %; NEUTROPHILS ABSOLUTE 4.11 10/3/uL (2.02-8.40); PLATELET COUNT 141 10/3/uL (150-400); RBC DISTRIBUTION WIDTH 15.8 % (12.0-16.0); WHITE BLOOD CELLS 6.2 10/3/uL (4.5-10.5)
[2016-10-15 12:18] LABS: HEMATOCRIT 30.4 % (40.0-51.0); MANUAL DIFF NO %; MEAN CORPUSCULAR HEMOGLOB 21.1 pg (26.0-34.0); MEAN CORPUSCULAR VOLUME 69.1 fL (80-100)
[2016-10-15 13:11] LABS: PLATELET ESTIMATE SLT DEC (ADEQUATE); RBC MORPHOLOGY ABN (NORMAL)
[2016-10-15 13:12] LABS: OVALOCYTES 1+ (3-10/OIF) (0-2/OIF)
[2016-10-15 13:32] LABS: BUN (BLOOD UREA NITROGEN) 15 MG/DL (6-23); CALCIUM, SERUM 9.1 MG/DL (8.5-10.4); CHLORIDE, SERUM 103 MMOL/L (96-112); CHOLESTEROL 122 MG/DL (< 200); CO2 (CARBON DIOXIDE) 28 MMOL/L (24-34); CREATININE 0.93 MG/DL (0.70-1.30); GFR AFRICAN AMERICAN 96 ML/MIN (>=60); GFR NON AFRICAN AMERICAN 83 ML/MIN (>=60); GLUCOSE, SERUM 123 MG/DL (60-99); HDL CHOLESTEROL 41 MG/DL (> 39); LDL CHOLESTEROL 57 MG/DL (< 130); NON-HDL CHOLESTEROL 81 MG/DL (< 160); SODIUM, SERUM 140 MMOL/L (135-148); TRIGLYCERIDE 120 MG/DL (< 150)
[2016-10-16 04:23] LABS: BASOPHILS 0.6 %; BASOPHILS ABSOLUTE 0.03 10/3/uL (0.0-0.16); EOSINOPHILS 1.4 %; EOSINOPHILS ABSOLUTE 0.07 10/3/uL (0.0-0.53); HEMOGLOBIN 8.5 g/dL (13.6-17.8); IMMATURE GRANULOCYTES 0.2 %; IMMATURE GRANULOCYTES ABSOLUTE 0.01 10/3/uL (0.0-0.11); LYMPHOCYTES ABSOLUTE 1.59 10/3/uL (0.67-4.30); MEAN CORPUS HGB CONC 29.3 g/dL (32.0-36.0); MEAN CORPUSCULAR HEMOGLOB 20.2 pg (26.0-34.0); MEAN CORPUSCULAR VOLUME 68.9 fL (80-100); MEAN PLATELET VOLUME 9.9 fL (9.2-13.0); MONOCYTES 6.2 %; MONOCYTES ABSOLUTE 0.32 10/3/uL (0.21-1.20); NEUTROPHILS 60.6 %; NEUTROPHILS ABSOLUTE 3.11 10/3/uL (2.02-8.40); PLATELET COUNT 139 10/3/uL (150-400); RBC DISTRIBUTION WIDTH 16.1 % (12.0-16.0); RED CELL COUNT 4.21 10/6/uL (4.7-6.1); WHITE BLOOD CELLS 5.1 10/3/uL (4.5-10.5)
[2016-10-16 04:27] LABS: MANUAL DIFF NO %
[2016-10-16 04:32] LABS: BUN (BLOOD UREA NITROGEN) 15 MG/DL (6-23); CALCIUM, SERUM 8.6 MG/DL (8.5-10.4); CHLORIDE, SERUM 104 MMOL/L (96-112); CO2 (CARBON DIOXIDE) 28 MMOL/L (24-34); CREATININE 1.08 MG/DL (0.70-1.30); GFR AFRICAN AMERICAN 80 ML/MIN (>=60); GFR NON AFRICAN AMERICAN 69 ML/MIN (>=60); GLUCOSE, SERUM 147 MG/DL (60-99); SODIUM, SERUM 141 MMOL/L (135-148)
[2016-10-16 04:47] LABS: PLATELET ESTIMATE SLT DEC (ADEQUATE)
[2016-10-16 04:49] LABS: ELLIPTOCYTES 1+ (3-10/OIF) (0-2/OIF)
[2016-10-16 11:34] LABS: BASOPHILS 0.6 %; BASOPHILS ABSOLUTE 0.03 10/3/uL (0.0-0.16); EOSINOPHILS 1.6 %; EOSINOPHILS ABSOLUTE 0.08 10/3/uL (0.0-0.53); HEMATOCRIT 29.6 % (40.0-51.0); HEMOGLOBIN 8.9 g/dL (13.6-17.8); LYMPHOCYTES 31.4 %; LYMPHOCYTES ABSOLUTE 1.59 10/3/uL (0.67-4.30); MEAN CORPUS HGB CONC 30.1 g/dL (32.0-36.0); MEAN CORPUSCULAR HEMOGLOB 20.7 pg (26.0-34.0); MEAN CORPUSCULAR VOLUME 68.8 fL (80-100); MEAN PLATELET VOLUME 9.4 fL (9.2-13.0); MONOCYTES 4.9 %; MONOCYTES ABSOLUTE 0.25 10/3/uL (0.21-1.20); NEUTROPHILS 61.5 %; NEUTROPHILS ABSOLUTE 3.12 10/3/uL (2.02-8.40); PLATELET COUNT 138 10/3/uL (150-400); RBC DISTRIBUTION WIDTH 16.1 % (12.0-16.0); WHITE BLOOD CELLS 5.1 10/3/uL (4.5-10.5)
[2016-10-16 11:42] LABS: INTERNATIONAL NORMAL RATI 1.1 UNITS (-); MANUAL DIFF NO %; PROTIME (NOT ORD) 13.9 SEC (12.0-14.5)
[2016-10-16 11:52] LABS: % IRON SAT 4 % (20-50); A/G RATIO 0.9 (0.7-1.9); ALBUMIN 3.5 G/DL (3.5-5.0); ALKALINE PHOSPHATASE 99 U/L (45-117); BUN (BLOOD UREA NITROGEN) 15 MG/DL (6-23); CALCIUM, SERUM 8.7 MG/DL (8.5-10.4); CHLORIDE, SERUM 103 MMOL/L (96-112); CO2 (CARBON DIOXIDE) 28 MMOL/L (24-34); CREATININE 0.98 MG/DL (0.70-1.30); GFR AFRICAN AMERICAN 90 ML/MIN (>=60); GFR NON AFRICAN AMERICAN 78 ML/MIN (>=60); GLOBULIN 3.8 G/DL (2.5-4.1); GLUCOSE, SERUM 185 MG/DL (60-99); IRON BINDING CAPACITY 548 MCG/DL (250-450); IRON, SERUM 22 MCG/DL (35-150); POTASSIUM, SERUM 4.1 MMOL/L (3.5-5.3); SGOT(AST) 35 U/L (5-40); SGPT(ALT) 38 U/L (5-65); SODIUM, SERUM 140 MMOL/L (135-148); TOTAL BILIRUBIN 0.4 MG/DL (0-1.2); TOTAL PROTEIN 7.3 G/DL (6.0-8.5)
[2016-10-16 11:58] LABS: OVALOCYTES 1+ (3-10/OIF) (0-2/OIF); PLATELET ESTIMATE SLT DEC (ADEQUATE); RBC MORPHOLOGY ABN (NORMAL); TEARDROP SHAPED RBCS OCC (0-2/OIF)
[2016-10-16 15:12] LABS: ASCORBIC ACID (UR NOT ORDER) NEG (NEG); BILIRUBIN, URINE NEGATIVE (NEG); KETONE, URINE NEGATIVE (NEG); LEUKOCYTE ESTERASE(NOT OR NEG (NEG); WBC (NOT ORDERED) (RFLEX) < 1 (0-5)
[2016-10-17 04:15] LABS: BASOPHILS 0.5 %; BASOPHILS ABSOLUTE 0.03 10/3/uL (0.0-0.16); EOSINOPHILS 1.5 %; EOSINOPHILS ABSOLUTE 0.09 10/3/uL (0.0-0.53); HEMATOCRIT 29.5 % (40.0-51.0); HEMOGLOBIN 8.9 g/dL (13.6-17.8); IMMATURE GRANULOCYTES 0.2 %; IMMATURE GRANULOCYTES ABSOLUTE 0.01 10/3/uL (0.0-0.11); LYMPHOCYTES 28.1 %; LYMPHOCYTES ABSOLUTE 1.74 10/3/uL (0.67-4.30); MEAN CORPUS HGB CONC 30.2 g/dL (32.0-36.0); MEAN CORPUSCULAR HEMOGLOB 20.6 pg (26.0-34.0); MEAN CORPUSCULAR VOLUME 68.4 fL (80-100); MEAN PLATELET VOLUME 10.3 fL (9.2-13.0); MONOCYTES 5.6 %; MONOCYTES ABSOLUTE 0.35 10/3/uL (0.21-1.20); NEUTROPHILS 64.1 %; NEUTROPHILS ABSOLUTE 3.98 10/3/uL (2.02-8.40); PLATELET COUNT 148 10/3/uL (150-400); RBC DISTRIBUTION WIDTH 16.1 % (12.0-16.0); RED CELL COUNT 4.31 10/6/uL (4.7-6.1); WHITE BLOOD CELLS 6.2 10/3/uL (4.5-10.5)
[2016-10-17 04:16] LABS: MANUAL DIFF NO %
[2016-10-17 04:28] LABS: BUN (BLOOD UREA NITROGEN) 18 MG/DL (6-23); CALCIUM, SERUM 8.8 MG/DL (8.5-10.4); CHLORIDE, SERUM 104 MMOL/L (96-112); CO2 (CARBON DIOXIDE) 26 MMOL/L (24-34); CREATININE 1.07 MG/DL (0.70-1.30); GFR AFRICAN AMERICAN 81 ML/MIN (>=60); GFR NON AFRICAN AMERICAN 70 ML/MIN (>=60); GLUCOSE, SERUM 170 MG/DL (60-99); POTASSIUM, SERUM 4.1 MMOL/L (3.5-5.3); SODIUM, SERUM 139 MMOL/L (135-148)
[2016-10-17 04:48] LABS: PLATELET ESTIMATE SLT DEC (ADEQUATE)
[2016-10-17 04:49] LABS: ELLIPTOCYTES 1+ (3-10/OIF) (0-2/OIF)
[2016-10-17 14:14] LABS: BE (BASE EXCESS) 0.7 MEQ/L (0 +/- 2.5); CARBOXYHEMOGLOBIN 0.3 % (0-3); HCO3 (ACTUAL BICARBONATE) 26.7 MEQ/L (23-27); HEMOBLOGIN CONTENT 9.3 G/DL (14-18); INSTRUMENT SERIAL # 11843; METHEMOGLOBIN 0.5 % (0-3); MODE SIMV; OPERATOR ID 19104; PCO2 (CO2 TENSION) 50 MMHG (35-45); PO2 (O2 TENSION) 418 MMHG (79-93); SAMPLE Arterial; TIDAL VOLUME 700 ML; pH 7.35 (7.37-7.43)
[2016-10-17 14:26] LABS: HEMOGLOBIN 8.7 g/dL (13.6-17.8); PLATELET COUNT 120 10/3/uL (150-400)
[2016-10-17 14:31] LABS: INTERNATIONAL NORMAL RATI 1.3 UNITS (-); PARTIAL THROMBO TIME 30.7 SEC (22.5-37.2)
[2016-10-17 14:37] LABS: BUN (BLOOD UREA NITROGEN) 20 MG/DL (6-23); CALCIUM, SERUM 8.8 MG/DL (8.5-10.4); CHLORIDE, SERUM 106 MMOL/L (96-112); CO2 (CARBON DIOXIDE) 28 MMOL/L (24-34); POTASSIUM, SERUM 4.1 MMOL/L (3.5-5.3); SODIUM, SERUM 142 MMOL/L (135-148)
[2016-10-17 14:38] LABS: CREATININE 1.64 MG/DL (0.70-1.30); GFR AFRICAN AMERICAN 48 ML/MIN (>=60); GFR NON AFRICAN AMERICAN 42 ML/MIN (>=60); GLUCOSE, SERUM 113 MG/DL (60-99)
[2016-10-17 14:43] LABS: PROTIME (NOT ORD) 16.3 SEC (12.0-14.5)
[2016-10-17 19:51] LABS: BE (BASE EXCESS) 0.4 MEQ/L (0 +/- 2.5); CARBOXYHEMOGLOBIN 0.3 % (0-3); HCO3 (ACTUAL BICARBONATE) 25.8 MEQ/L (23-27); HEMOBLOGIN CONTENT 10.5 G/DL (14-18); INSTRUMENT SERIAL # 11843; METHEMOGLOBIN 0.4 % (0-3); OPERATOR ID 13415; PCO2 (CO2 TENSION) 45 MMHG (35-45); PO2 (O2 TENSION) 82 MMHG (79-93); SAMPLE Arterial; pH 7.38 (7.37-7.43)
[2016-10-17 20:05] LABS: HEMOGLOBIN 9.8 g/dL (13.6-17.8)
[2016-10-17 20:11] LABS: HEMATOCRIT 31.5 % (40.0-51.0); POTASSIUM, SERUM 3.8 MMOL/L (3.5-5.3)
[2016-10-18 03:36] LABS: BASOPHILS 0.1 %; BASOPHILS ABSOLUTE 0.01 10/3/uL (0.0-0.16); EOSINOPHILS 0 %; HEMATOCRIT 30.3 % (40.0-51.0); HEMOGLOBIN 9.4 g/dL (13.6-17.8); IMMATURE GRANULOCYTES 0.4 %; IMMATURE GRANULOCYTES ABSOLUTE 0.06 10/3/uL (0.0-0.11); LYMPHOCYTES 8.3 %; LYMPHOCYTES ABSOLUTE 1.13 10/3/uL (0.67-4.30); MANUAL DIFF NO %; MEAN CORPUSCULAR HEMOGLOB 22.7 pg (26.0-34.0); MEAN PLATELET VOLUME 10.1 fL (9.2-13.0); MONOCYTES 7.4 %; MONOCYTES ABSOLUTE 1.01 10/3/uL (0.21-1.20); NEUTROPHILS 83.8 %; NEUTROPHILS ABSOLUTE 11.36 10/3/uL (2.02-8.40); PLATELET COUNT 144 10/3/uL (150-400); RBC DISTRIBUTION WIDTH 17.6 % (12.0-16.0); RED CELL COUNT 4.15 10/6/uL (4.7-6.1); WHITE BLOOD CELLS 13.6 10/3/uL (4.5-10.5)
[2016-10-18 03:46] LABS: CHLORIDE, SERUM 109 MMOL/L (96-112); CO2 (CARBON DIOXIDE) 25 MMOL/L (24-34); CREATININE 1.51 MG/DL (0.70-1.30); GFR AFRICAN AMERICAN 53 ML/MIN (>=60); GFR NON AFRICAN AMERICAN 46 ML/MIN (>=60); GLUCOSE, SERUM 112 MG/DL (60-99); POTASSIUM, SERUM 4.2 MMOL/L (3.5-5.3); SODIUM, SERUM 144 MMOL/L (135-148)
[2016-10-18 03:51] LABS: BUN (BLOOD UREA NITROGEN) 25 MG/DL (6-23); CALCIUM, SERUM 7.7 MG/DL (8.5-10.4)
[2016-10-18 03:52] LABS: INTERNATIONAL NORMAL RATI 1.3 UNITS (-)
[2016-10-18 16:41] LABS: HEMATOCRIT 28.3 % (40.0-51.0); HEMOGLOBIN 8.9 g/dL (13.6-17.8)
[2016-10-18 16:49] LABS: POTASSIUM, SERUM 3.6 MMOL/L (3.5-5.3)
[2016-10-18 23:33] LABS: POTASSIUM, SERUM 3.9 MMOL/L (3.5-5.3)
[2016-10-19 03:59] LABS: BASOPHILS 0.2 %; BASOPHILS ABSOLUTE 0.02 10/3/uL (0.0-0.16); EOSINOPHILS 0.1 %; EOSINOPHILS ABSOLUTE 0.01 10/3/uL (0.0-0.53); IMMATURE GRANULOCYTES 0.2 %; IMMATURE GRANULOCYTES ABSOLUTE 0.03 10/3/uL (0.0-0.11); LYMPHOCYTES 12.6 %; LYMPHOCYTES ABSOLUTE 1.55 10/3/uL (0.67-4.30); MANUAL DIFF NO %; MEAN CORPUSCULAR HEMOGLOB 22.2 pg (26.0-34.0); MEAN CORPUSCULAR VOLUME 71.4 fL (80-100); MEAN PLATELET VOLUME 10.1 fL (9.2-13.0); MONOCYTES 7.6 %; MONOCYTES ABSOLUTE 0.94 10/3/uL (0.21-1.20); NEUTROPHILS 79.3 %; NEUTROPHILS ABSOLUTE 9.76 10/3/uL (2.02-8.40); PLATELET COUNT 126 10/3/uL (150-400); RBC DISTRIBUTION WIDTH 18.1 % (12.0-16.0); RED CELL COUNT 4.06 10/6/uL (4.7-6.1); WHITE BLOOD CELLS 12.3 10/3/uL (4.5-10.5)
[2016-10-19 04:10] LABS: BUN (BLOOD UREA NITROGEN) 32 MG/DL (6-23); CALCIUM, SERUM 7.7 MG/DL (8.5-10.4); CHLORIDE, SERUM 104 MMOL/L (96-112); CO2 (CARBON DIOXIDE) 22 MMOL/L (24-34); CREATININE 1.27 MG/DL (0.70-1.30); GFR AFRICAN AMERICAN 66 ML/MIN (>=60); GFR NON AFRICAN AMERICAN 57 ML/MIN (>=60); GLUCOSE, SERUM 187 MG/DL (60-99); POTASSIUM, SERUM 4.1 MMOL/L (3.5-5.3); SODIUM, SERUM 137 MMOL/L (135-148)
[2016-10-20 04:07] LABS: BASOPHILS 0.2 %; BASOPHILS ABSOLUTE 0.03 10/3/uL (0.0-0.16); EOSINOPHILS 0.1 %; EOSINOPHILS ABSOLUTE 0.02 10/3/uL (0.0-0.53); HEMATOCRIT 30.2 % (40.0-51.0); HEMOGLOBIN 9.3 g/dL (13.6-17.8); IMMATURE GRANULOCYTES 0.4 %; IMMATURE GRANULOCYTES ABSOLUTE 0.05 10/3/uL (0.0-0.11); LYMPHOCYTES 13.6 %; LYMPHOCYTES ABSOLUTE 1.92 10/3/uL (0.67-4.30); MANUAL DIFF NO %; MEAN CORPUS HGB CONC 30.8 g/dL (32.0-36.0); MEAN CORPUSCULAR HEMOGLOB 22.4 pg (26.0-34.0); MEAN CORPUSCULAR VOLUME 72.8 fL (80-100); MEAN PLATELET VOLUME 9.7 fL (9.2-13.0); MONOCYTES 8.5 %; NEUTROPHILS 77.2 %; NEUTROPHILS ABSOLUTE 10.92 10/3/uL (2.02-8.40); PLATELET COUNT 141 10/3/uL (150-400); RBC DISTRIBUTION WIDTH 18.2 % (12.0-16.0); RED CELL COUNT 4.15 10/6/uL (4.7-6.1); WHITE BLOOD CELLS 14.1 10/3/uL (4.5-10.5)
[2016-10-20 04:15] LABS: CALCIUM, SERUM 7.7 MG/DL (8.5-10.4); CHLORIDE, SERUM 102 MMOL/L (96-112); CO2 (CARBON DIOXIDE) 25 MMOL/L (24-34); CREATININE 1.51 MG/DL (0.70-1.30); GFR AFRICAN AMERICAN 53 ML/MIN (>=60); GFR NON AFRICAN AMERICAN 46 ML/MIN (>=60); GLUCOSE, SERUM 170 MG/DL (60-99); INTERNATIONAL NORMAL RATI 1.2 UNITS (-); POTASSIUM, SERUM 4.5 MMOL/L (3.5-5.3); PROTIME (NOT ORD) 15.3 SEC (12.0-14.5); SODIUM, SERUM 136 MMOL/L (135-148)
[2016-10-20 04:17] LABS: BUN (BLOOD UREA NITROGEN) 51 MG/DL (6-23)
[2016-10-20 04:42] LABS: ANISOCYTOSIS 1+ (5-10/OIF) (0-5/OIF)
[2016-10-21 05:40] LABS: BASOPHILS 0.2 %; BASOPHILS ABSOLUTE 0.02 10/3/uL (0.0-0.16); EOSINOPHILS 0.2 %; EOSINOPHILS ABSOLUTE 0.02 10/3/uL (0.0-0.53); HEMATOCRIT 31.5 % (40.0-51.0); HEMOGLOBIN 9.7 g/dL (13.6-17.8); IMMATURE GRANULOCYTES 0.3 %; IMMATURE GRANULOCYTES ABSOLUTE 0.03 10/3/uL (0.0-0.11); LYMPHOCYTES 14.3 %; LYMPHOCYTES ABSOLUTE 1.61 10/3/uL (0.67-4.30); MEAN CORPUS HGB CONC 30.8 g/dL (32.0-36.0); MEAN CORPUSCULAR HEMOGLOB 22.3 pg (26.0-34.0); MEAN CORPUSCULAR VOLUME 72.4 fL (80-100); MEAN PLATELET VOLUME 10.2 fL (9.2-13.0); MONOCYTES 6.3 %; MONOCYTES ABSOLUTE 0.71 10/3/uL (0.21-1.20); NEUTROPHILS 78.7 %; NEUTROPHILS ABSOLUTE 8.89 10/3/uL (2.02-8.40); PLATELET COUNT 158 10/3/uL (150-400); RBC DISTRIBUTION WIDTH 18.2 % (12.0-16.0); RED CELL COUNT 4.35 10/6/uL (4.7-6.1); WHITE BLOOD CELLS 11.3 10/3/uL (4.5-10.5)
[2016-10-21 05:44] LABS: MANUAL DIFF NO %
[2016-10-21 05:59] LABS: BUN (BLOOD UREA NITROGEN) 52 MG/DL (6-23); CALCIUM, SERUM 8.2 MG/DL (8.5-10.4); CHLORIDE, SERUM 102 MMOL/L (96-112); CO2 (CARBON DIOXIDE) 25 MMOL/L (24-34); CREATININE 1.16 MG/DL (0.70-1.30); GFR AFRICAN AMERICAN 74 ML/MIN (>=60); GFR NON AFRICAN AMERICAN 63 ML/MIN (>=60); GLUCOSE, SERUM 152 MG/DL (60-99); POTASSIUM, SERUM 4.3 MMOL/L (3.5-5.3); SODIUM, SERUM 137 MMOL/L (135-148)
[2016-10-21 06:32] LABS: ANISOCYTOSIS 1+ (5-10/OIF) (0-5/OIF); PLATELET ESTIMATE ADQ (ADEQUATE)
[2016-10-21 06:33] LABS: OVALOCYTES 1+ (3-10/OIF) (0-2/OIF); POIKILOCYTOSIS 1+ (5-10/OIF) (0-5/OIF); POLYCHROMASIA 1+ (2-5/OIF) (0-1/OIF)
[2016-10-21 11:13] LABS: INSTRUMENT SERIAL # 35151
[2016-10-21 11:14] LABS: ALLENS TEST Pos; BE (BASE EXCESS) -2.4 MEQ/L (0 +/- 2.5); CARBOXYHEMOGLOBIN 0.3 % (0-3); DEVICE NC; HCO3 (ACTUAL BICARBONATE) 22.1 MEQ/L (23-27); HEMOBLOGIN CONTENT 9.9 G/DL (14-18); METHEMOGLOBIN 0.4 % (0-3); O2 CONTENT 13.1 VOL% (18-24); PCO2 (CO2 TENSION) 37 MMHG (35-45); PO2 (O2 TENSION) 75 MMHG (79-93); SAMPLE Arterial
[2016-10-21 14:11] LABS: ALBUMIN 2.8 G/DL (3.5-5.0); DIRECT BILIRUBIN 0.2 MG/DL (0.0-0.4); FREE T4 1.06 NG/DL (0.76-1.46); INDIRECT BILIRUBIN(NOT ORDER) 0.3 MG/DL (0.1-0.9); TOTAL BILIRUBIN 0.5 MG/DL (0-1.2); TOTAL PROTEIN 6.8 G/DL (6.0-8.5); ULTRASENSITIVE TSH 1.07 MCIU/ML (0.358-3.740)
[2016-10-22 04:16] LABS: BASOPHILS 0.4 %; BASOPHILS ABSOLUTE 0.03 10/3/uL (0.0-0.16); EOSINOPHILS 0.6 %; EOSINOPHILS ABSOLUTE 0.05 10/3/uL (0.0-0.53); IMMATURE GRANULOCYTES 0.2 %; IMMATURE GRANULOCYTES ABSOLUTE 0.02 10/3/uL (0.0-0.11); LYMPHOCYTES 18.3 %; LYMPHOCYTES ABSOLUTE 1.55 10/3/uL (0.67-4.30); MONOCYTES 9.5 %; MONOCYTES ABSOLUTE 0.81 10/3/uL (0.21-1.20); NEUTROPHILS ABSOLUTE 6.03 10/3/uL (2.02-8.40)
[2016-10-22 04:21] LABS: WHITE BLOOD CELLS 8.5 10/3/uL (4.5-10.5)
[2016-10-22 04:22] LABS: HEMOGLOBIN 9.1 g/dL (13.6-17.8); MEAN CORPUS HGB CONC 31.4 g/dL (32.0-36.0); MEAN CORPUSCULAR HEMOGLOB 22.6 pg (26.0-34.0); MEAN CORPUSCULAR VOLUME 72.1 fL (80-100); RBC DISTRIBUTION WIDTH 18.4 % (12.0-16.0); RED CELL COUNT 4.02 10/6/uL (4.7-6.1)
[2016-10-22 04:23] LABS: MANUAL DIFF NO %; MEAN PLATELET VOLUME 9.6 fL (9.2-13.0); PLATELET COUNT 138 10/3/uL (150-400)
[2016-10-22 04:35] LABS: BUN (BLOOD UREA NITROGEN) 51 MG/DL (6-23); CALCIUM, SERUM 8.2 MG/DL (8.5-10.4); CHLORIDE, SERUM 103 MMOL/L (96-112); CO2 (CARBON DIOXIDE) 28 MMOL/L (24-34); CREATININE 1.04 MG/DL (0.70-1.30); GFR AFRICAN AMERICAN 84 ML/MIN (>=60); GFR NON AFRICAN AMERICAN 72 ML/MIN (>=60); GLUCOSE, SERUM 143 MG/DL (60-99); PHOSPHORUS, SERUM 2.3 MG/DL (2.5-4.5); POTASSIUM, SERUM 3.9 MMOL/L (3.5-5.3); SODIUM, SERUM 141 MMOL/L (135-148)
[2016-10-23 04:25] LABS: BASOPHILS 0.5 %; BASOPHILS ABSOLUTE 0.04 10/3/uL (0.0-0.16); EOSINOPHILS ABSOLUTE 0.08 10/3/uL (0.0-0.53); HEMATOCRIT 29.5 % (40.0-51.0); IMMATURE GRANULOCYTES 0.6 %; IMMATURE GRANULOCYTES ABSOLUTE 0.05 10/3/uL (0.0-0.11); LYMPHOCYTES 25.4 %; LYMPHOCYTES ABSOLUTE 2.08 10/3/uL (0.67-4.30); MEAN CORPUS HGB CONC 30.5 g/dL (32.0-36.0); MEAN CORPUSCULAR HEMOGLOB 22.2 pg (26.0-34.0); MEAN CORPUSCULAR VOLUME 72.7 fL (80-100); MEAN PLATELET VOLUME 10.1 fL (9.2-13.0); MONOCYTES 9.6 %; MONOCYTES ABSOLUTE 0.79 10/3/uL (0.21-1.20); NEUTROPHILS 62.9 %; NEUTROPHILS ABSOLUTE 5.16 10/3/uL (2.02-8.40); PLATELET COUNT 138 10/3/uL (150-400); RBC DISTRIBUTION WIDTH 18.6 % (12.0-16.0); RED CELL COUNT 4.06 10/6/uL (4.7-6.1); WHITE BLOOD CELLS 8.2 10/3/uL (4.5-10.5)
[2016-10-23 04:29] LABS: MANUAL DIFF NO %
[2016-10-23 04:44] LABS: CALCIUM, SERUM 8.1 MG/DL (8.5-10.4); CHLORIDE, SERUM 104 MMOL/L (96-112); CO2 (CARBON DIOXIDE) 30 MMOL/L (24-34); FERRITIN 119 NG/ML (26-388); GFR AFRICAN AMERICAN 88 ML/MIN (>=60); GFR NON AFRICAN AMERICAN 76 ML/MIN (>=60); GLUCOSE, SERUM 141 MG/DL (60-99); IRON, SERUM 20 MCG/DL (35-150); PHOSPHORUS, SERUM 2.7 MG/DL (2.5-4.5); POTASSIUM, SERUM 3.7 MMOL/L (3.5-5.3); SODIUM, SERUM 143 MMOL/L (135-148)
[2016-10-23 04:45] LABS: BUN (BLOOD UREA NITROGEN) 39 MG/DL (6-23); IRON BINDING CAPACITY 328 MCG/DL (250-450)
[2016-10-23 05:19] LABS: PLATELET ESTIMATE SLT DEC (ADEQUATE)
[2016-10-23 05:20] LABS: ANISOCYTOSIS 1+ (5-10/OIF) (0-5/OIF); POLYCHROMASIA 1+ (2-5/OIF) (0-1/OIF)
[2016-10-23 07:37] LABS: SMEAR FOR ABNORMAL CELLS SEE PATHOLOGY REPORT
[2016-10-23 07:47] LABS: ALLENS TEST Pos; BE (BASE EXCESS) 4.4 MEQ/L (0 +/- 2.5); CARBOXYHEMOGLOBIN 0.3 % (0-3); HCO3 (ACTUAL BICARBONATE) 28.9 MEQ/L (23-27); HEMOBLOGIN CONTENT 9.8 G/DL (14-18); INSTRUMENT SERIAL # 11843; METHEMOGLOBIN 0.3 % (0-3); O2 CONTENT 13.2 VOL% (18-24); OPERATOR ID 23712; PCO2 (CO2 TENSION) 43 MMHG (35-45); PO2 (O2 TENSION) 80 MMHG (79-93); SAMPLE Arterial; pH 7.45 (7.37-7.43)
[2016-10-24 05:15] LABS: BASOPHILS 0.4 %; BASOPHILS ABSOLUTE 0.03 10/3/uL (0.0-0.16); EOSINOPHILS 1.2 %; HEMATOCRIT 30.2 % (40.0-51.0); HEMOGLOBIN 9.5 g/dL (13.6-17.8); IMMATURE GRANULOCYTES 0.6 %; IMMATURE GRANULOCYTES ABSOLUTE 0.05 10/3/uL (0.0-0.11); LYMPHOCYTES 21.4 %; MEAN CORPUS HGB CONC 31.5 g/dL (32.0-36.0); MEAN CORPUSCULAR HEMOGLOB 22.8 pg (26.0-34.0); MEAN CORPUSCULAR VOLUME 72.6 fL (80-100); MEAN PLATELET VOLUME 9.8 fL (9.2-13.0); MONOCYTES 9.6 %; MONOCYTES ABSOLUTE 0.81 10/3/uL (0.21-1.20); NEUTROPHILS 66.8 %; NEUTROPHILS ABSOLUTE 5.63 10/3/uL (2.02-8.40); PLATELET COUNT 140 10/3/uL (150-400); RBC DISTRIBUTION WIDTH 18.5 % (12.0-16.0); RED CELL COUNT 4.16 10/6/uL (4.7-6.1); WHITE BLOOD CELLS 8.4 10/3/uL (4.5-10.5)
[2016-10-24 05:18] LABS: CALCIUM, SERUM 8.2 MG/DL (8.5-10.4); CHLORIDE, SERUM 102 MMOL/L (96-112); CO2 (CARBON DIOXIDE) 31 MMOL/L (24-34); CREATININE 0.89 MG/DL (0.70-1.30); GFR AFRICAN AMERICAN 100 ML/MIN (>=60); GFR NON AFRICAN AMERICAN 87 ML/MIN (>=60); GLUCOSE, SERUM 123 MG/DL (60-99); POTASSIUM, SERUM 3.7 MMOL/L (3.5-5.3); SODIUM, SERUM 142 MMOL/L (135-148)
[2016-10-24 05:19] LABS: MANUAL DIFF NO %
[2016-10-24 05:25] LABS: BUN (BLOOD UREA NITROGEN) 33 MG/DL (6-23); PHOSPHORUS, SERUM 3.6 MG/DL (2.5-4.5)
[2016-10-25 06:57] LABS: BUN (BLOOD UREA NITROGEN) 32 MG/DL (6-23); CALCIUM, SERUM 7.9 MG/DL (8.5-10.4); CHLORIDE, SERUM 101 MMOL/L (96-112); CO2 (CARBON DIOXIDE) 26 MMOL/L (24-34); CREATININE 0.95 MG/DL (0.70-1.30); GFR AFRICAN AMERICAN 94 ML/MIN (>=60); GFR NON AFRICAN AMERICAN 81 ML/MIN (>=60); GLUCOSE, SERUM 108 MG/DL (60-99); POTASSIUM, SERUM 4.4 MMOL/L (3.5-5.3); SODIUM, SERUM 141 MMOL/L (135-148)
[2016-10-25 07:52] LABS: BASOPHILS 0.3 %; BASOPHILS ABSOLUTE 0.04 10/3/uL (0.0-0.16); EOSINOPHILS 1.2 %; EOSINOPHILS ABSOLUTE 0.14 10/3/uL (0.0-0.53); HEMATOCRIT 29.9 % (40.0-51.0); HEMOGLOBIN 9.1 g/dL (13.6-17.8); IMMATURE GRANULOCYTES 0.9 %; IMMATURE GRANULOCYTES ABSOLUTE 0.11 10/3/uL (0.0-0.11); LYMPHOCYTES 21.5 %; LYMPHOCYTES ABSOLUTE 2.56 10/3/uL (0.67-4.30); MEAN CORPUS HGB CONC 30.4 g/dL (32.0-36.0); MEAN CORPUSCULAR VOLUME 72.2 fL (80-100); MEAN PLATELET VOLUME 10.4 fL (9.2-13.0); MONOCYTES 7.6 %; NEUTROPHILS 68.5 %; NEUTROPHILS ABSOLUTE 8.14 10/3/uL (2.02-8.40); PLATELET COUNT 158 10/3/uL (150-400); RBC DISTRIBUTION WIDTH 18.5 % (12.0-16.0); RED CELL COUNT 4.14 10/6/uL (4.7-6.1)
[2016-10-25 07:56] LABS: MANUAL DIFF NO %; WHITE BLOOD CELLS 11.9 10/3/uL (4.5-10.5)
[2016-10-25 08:20] LABS: BAND NEUTROPHILS 2 %; LYMPHOCYTES 23 %; LYMPHOCYTES ABSOLUTE (CALC) 2.74 10/3/uL (0.67-4.30); MONOCYTES 5 %; NEUTROPHILS ABSOLUTE (CALC) 8.57 10/3/uL (2.02-8.40); PLATELET ESTIMATE ADQ (ADEQUATE); SEGMENTED NEUTROPHIL (0) 70 %; TOTAL NUCLEATED CELLS 100
[2016-10-26 06:38] LABS: BASOPHILS 0.3 %; BASOPHILS ABSOLUTE 0.03 10/3/uL (0.0-0.16); EOSINOPHILS 1.2 %; EOSINOPHILS ABSOLUTE 0.14 10/3/uL (0.0-0.53); HEMATOCRIT 30.6 % (40.0-51.0); HEMOGLOBIN 9.4 g/dL (13.6-17.8); IMMATURE GRANULOCYTES 0.4 %; IMMATURE GRANULOCYTES ABSOLUTE 0.05 10/3/uL (0.0-0.11); LYMPHOCYTES 19.5 %; LYMPHOCYTES ABSOLUTE 2.33 10/3/uL (0.67-4.30); MEAN CORPUS HGB CONC 30.7 g/dL (32.0-36.0); MEAN CORPUSCULAR HEMOGLOB 22.3 pg (26.0-34.0); MEAN CORPUSCULAR VOLUME 72.7 fL (80-100); MONOCYTES 6.9 %; MONOCYTES ABSOLUTE 0.82 10/3/uL (0.21-1.20); NEUTROPHILS 71.7 %; NEUTROPHILS ABSOLUTE 8.55 10/3/uL (2.02-8.40); PLATELET COUNT 180 10/3/uL (150-400); RBC DISTRIBUTION WIDTH 18.6 % (12.0-16.0); RED CELL COUNT 4.21 10/6/uL (4.7-6.1); WHITE BLOOD CELLS 11.9 10/3/uL (4.5-10.5)
[2016-10-26 06:40] LABS: MANUAL DIFF NO %
[2016-10-26 07:08] LABS: ANISOCYTOSIS 1+ (5-10/OIF) (0-5/OIF); PLATELET ESTIMATE ADQ (ADEQUATE)
[2016-10-27 06:41] LABS: BASOPHILS 0.4 %; BASOPHILS ABSOLUTE 0.04 10/3/uL (0.0-0.16); EOSINOPHILS 1.6 %; EOSINOPHILS ABSOLUTE 0.16 10/3/uL (0.0-0.53); HEMATOCRIT 31.5 % (40.0-51.0); HEMOGLOBIN 9.7 g/dL (13.6-17.8); IMMATURE GRANULOCYTES 0.5 %; IMMATURE GRANULOCYTES ABSOLUTE 0.05 10/3/uL (0.0-0.11); LYMPHOCYTES 25.6 %; LYMPHOCYTES ABSOLUTE 2.55 10/3/uL (0.67-4.30); MEAN CORPUS HGB CONC 30.8 g/dL (32.0-36.0); MEAN CORPUSCULAR HEMOGLOB 22.3 pg (26.0-34.0); MEAN CORPUSCULAR VOLUME 72.4 fL (80-100); MEAN PLATELET VOLUME 9.5 fL (9.2-13.0); MONOCYTES 5.3 %; MONOCYTES ABSOLUTE 0.53 10/3/uL (0.21-1.20); NEUTROPHILS 66.6 %; NEUTROPHILS ABSOLUTE 6.64 10/3/uL (2.02-8.40); PLATELET COUNT 165 10/3/uL (150-400); RBC DISTRIBUTION WIDTH 18.4 % (12.0-16.0); RED CELL COUNT 4.35 10/6/uL (4.7-6.1)
[2016-10-27 06:43] LABS: MANUAL DIFF NO %
[2016-10-27 06:51] LABS: CALCIUM, SERUM 8.4 MG/DL (8.5-10.4); CHLORIDE, SERUM 101 MMOL/L (96-112); CREATININE 0.83 MG/DL (0.70-1.30); GFR AFRICAN AMERICAN 103 ML/MIN (>=60); GFR NON AFRICAN AMERICAN 89 ML/MIN (>=60); GLUCOSE, SERUM 112 MG/DL (60-99); SODIUM, SERUM 141 MMOL/L (135-148)
[2016-10-27 06:52] LABS: BUN (BLOOD UREA NITROGEN) 18 MG/DL (6-23); CO2 (CARBON DIOXIDE) 33 MMOL/L (24-34); POTASSIUM, SERUM 3.5 MMOL/L (3.5-5.3)
[2016-10-27 07:07] LABS: ANISOCYTOSIS 1+ (5-10/OIF) (0-5/OIF); HYPOCHROMIA 1+ (3-10/OIF) (0-2/OIF); PLATELET ESTIMATE ADQ (ADEQUATE)
[2016-10-28 06:47] LABS: BUN (BLOOD UREA NITROGEN) 17 MG/DL (6-23); CALCIUM, SERUM 8.4 MG/DL (8.5-10.4); CHLORIDE, SERUM 103 MMOL/L (96-112); CO2 (CARBON DIOXIDE) 31 MMOL/L (24-34); CREATININE 0.83 MG/DL (0.70-1.30); GFR AFRICAN AMERICAN 103 ML/MIN (>=60); GFR NON AFRICAN AMERICAN 89 ML/MIN (>=60); GLUCOSE, SERUM 106 MG/DL (60-99); POTASSIUM, SERUM 3.7 MMOL/L (3.5-5.3); SODIUM, SERUM 142 MMOL/L (135-148)
== END 2016-10-28 16:42 | DRG 233 ==
LOC: CORLMH 11:22 → SSU1 11:34 → SDC/OF 10-17 07:40 → CVICU 10-17 11:42 → 5NO 10-20 14:07 → CVICU 10-21 14:30 → 5NO 10-24 08:49
PROVIDERS: Internal Medicine; Internal Medicine Cardiovascular Disease; Nurse Practitioner; Nurse Practitioner Family; Thoracic Surgery (Cardiothoracic Vascular Surgery)
PROC: 4A023N7 Measurement of Cardiac Sampling and Pressure, Left Heart, Percutaneous Approach (ICD-10-PCS; 2016-10-15)
PROC: B2111ZZ Fluoroscopy of Multiple Coronary Arteries using Low Osmolar Contrast (ICD-10-PCS; 2016-10-15)
PROC: B2151ZZ Fluoroscopy of Left Heart using Low Osmolar Contrast (ICD-10-PCS; 2016-10-15)
PROC: 06BQ4ZZ Excision of Left Saphenous Vein, Percutaneous Endoscopic Approach (ICD-10-PCS; 2016-10-17)
PROC: 06BP4ZZ Excision of Right Saphenous Vein, Percutaneous Endoscopic Approach (ICD-10-PCS; 2016-10-17)
PROC: 5A1221Z Performance of Cardiac Output, Continuous (ICD-10-PCS; 2016-10-17)
PROC: B246ZZ4 Ultrasonography of Right and Left Heart, Transesophageal (ICD-10-PCS; 2016-10-17)
PROC: 021109W Bypass Coronary Artery, Two Arteries from Aorta with Autologous Venous Tissue, Open Approach (ICD-10-PCS; principal; 2016-10-17 08:30)
PROC: 0210099 Bypass Coronary Artery, One Artery from Left Internal Mammary with Autologous Venous Tissue, Open Approach (ICD-10-PCS; 2016-10-17 08:30)
DX: I25.110 Atherosclerotic heart disease of native coronary artery with unstable angina pectoris (principal); G93.49 Other encephalopathy; I63.9 Cerebral infarction, unspecified; E11.9 Type 2 diabetes mellitus without complications; I10 Essential (primary) hypertension; D50.9 Iron deficiency anemia, unspecified; I97.820 Postprocedural cerebrovascular infarction following cardiac surgery; I97.89 Other postprocedural complications and disorders of the circulatory system, not elsewhere classified; D64.9 Anemia, unspecified; E78.5 Hyperlipidemia, unspecified; I44.7 Left bundle-branch block, unspecified; I48.91 Unspecified atrial fibrillation; E66.9 Obesity, unspecified; Z68.34 Body mass index [BMI] 34.0-34.9, adult; Y83.2 Surgical operation with anastomosis, bypass or graft as the cause of abnormal reaction of the patient, or of later complication, without mention of misadventure at the time of the procedure; Y92.239 Unspecified place in hospital as the place of occurrence of the external cause; Z87.891 Personal history of nicotine dependence; Z79.82 Long term (current) use of aspirin; Z79.899 Other long term (current) drug therapy; Z79.4 Long term (current) use of insulin
CPT/HCPCS: 36415; 36600; 70450; 70551; 71010; 71020; 80048; 80053; 80061; 80076; 81001; 82140; 82272; 82330; 82533; 82728; 82803; 82805; 82947; 82962; 83036; 83540; 83550; 83735; 84100; 84132; 84295; 84436; 84439; 84443; 85014; 85018; 85025; 85049; 85347; 85610; 85730; 86850; 86900; 86901; 86920; 87493; 87493-59; 87641; 92523-GN; 92610-GN; 92978; 93005; 93312; 93320; 93325; 93458; 93880; 94002; 94640; 94660; 94770; 97110-GP; 97116-GP; 97162-GP; 97530-GP; 99152; 99153; A9270-GY; C1713; C1725; C1753; C1757; C1769; C1887; C1894; C8929; J0282; J0690; J1644; J1940; J2150; J2250; J2370; J2405; J2440; J2720; J3010; J3411; J3475; J3480; P9016; P9035; P9045; P9047; P9059; Q9957; Q9967